=== PATIENT | male | born 1995 | race Two or more races ===

== ENCOUNTER 2021-04-20 18:21 | Emergency (ER) | payer SELFPAY | END 2021-04-20 20:41 | disposition left against medical advice (07) | PROVIDERS: Emergency Provider Emergency Medicine | DX: J45.909 Unspecified asthma, uncomplicated (principal) ==

== ENCOUNTER 2021-04-21 07:31 | Emergency (ER) | payer OTHER, SELFPAY ==
--- NOTE | ~2021-04-21 | XR_ITS ---
EXAMINATION: XR CHEST CLINICAL INFORMATION: Shortness of breath and cough COMPARISON: Previous chest x-ray July 2018 TECHNIQUE: Frontal view of the chest was obtained. FINDINGS: The cardiac and mediastinal contours are normal. The lungs are clear. There is no pleural effusion or pneumothorax. Bony structures are unremarkable. XR/XR chest 1V IMPRESSION: Unremarkable examination.
[2021-04-21 07:41] VITALS: BP 131/72; PULSE 58; RESP 18; TEMP 36.9; O2SAT 98; BMI 31.5
--- NOTE | 2021-04-21 07:45 | ED_ITS ---
HPI - Asthma General Chief Complaint: Asthma Stated Complaint: asthma Time Seen by Provider: 04/21/21 07:43 Source: patient Mode of arrival: ambulatory Limitations: no limitations History of Present Illness HPI Narrative: 26-year-old male past medical history of asthma presents to the emergency department with one-week shortness of breath, and nonproductive cough. He states this is like his typical asthma attack, but it is just not going away. He has been using his albuterol rescue inhaler, and his nebulizer more frequently than usual. He states that yesterday alone he used his nebulizer 3 times, and he used albuterol inhaler like 6 times with little to no relief. He also states he has been feeling stuffy lately and has had a dry cough. He has never required intubation for asthma. He is not a smoker. He denies chest pain, fevers, chills, sore throat, abdominal pain, changes in bowel habits. MD complaint: asthma attack Onset (ago): week(s) (1) Severity: moderate Context: none known Associated symptoms: dry cough Treatments Prior to Arrival: other (Nebulizing treatments and rescue inhaler) Related Data Previous Rx's Medication Instructions Recorded albuterol sulfate 2.5 mg INHALATION Q4-6H PRN #75 ml 04/21/21 albuterol sulfate 90 mcg/actuation 2 puff INHALATION QID PRN #6.7 g 04/21/21 aerosol inhaler prednisone 20 mg tablet 40 mg PO DAILY 5 Days #10 tab 04/21/21 Allergies Allergy/AdvReac Type Severity Reaction Status Date / Time shellfish derived Allergy Anaphylaxis Verified 04/21/21 07:44 Review of Systems Review of Systems: Constitutional : No Weight loss, No Fever, No Chills, No Fatigue, No Malaise ENT/Mouth : No sore throat, + Rhinorrhea Eyes: No Eye Pain, No Swelling, No Redness Cardiovascular : No Chest Pain, + SOB, + Dyspnea on Exertion, No Orthopnea, No Edema, No Palpitations Respiratory : + Cough, No Sputum, No Wheezing Gastrointestinal : No Nausea, No Vomiting, No Diarrhea, No Constipation, No abdominal Pain Genitourinary : No Dysuria, No Urinary Frequency, No Hematuria, Musculoskeletal : No joint pain, No Myalgias, No Joint Swelling Skin : No Skin Lesions, No rash Neuro : No Weakness, No Numbness, No Dizziness, No Headache Psych : No Anxiety/Panic, No Depression All other systems reviewed and are negative [facility] Past Medical History Medical History (Updated 04/21/21 @ 09:35 by Felicita Salinas DO) Asthma Social History Social History Alcohol intake: never Use of substances other than those prescribed or required for medical reasons: No Advance Directives: No Advance Directives Information Provided: No Physical Exam Vital Signs: Vital Signs: Last Vital Signs Temp 98.4 F 04/21/21 07:41 Pulse 76 04/21/21 08:42 Resp 18 04/21/21 07:41 BP 131/72 04/21/21 07:41 Pulse Ox 98 04/21/21 07:41 Body Mass Index 31.5 Appearance: Alert. Oriented X3. No acute distress. Eyes: Pupils equal, round and reactive to light. ENT: Pharynx normal. Neck: Normal inspection. Neck supple. CVS: Normal heart rate and rhythm. Pulses normal. Respiratory: + Mild respiratory distress. + rhonchi and wheezes noted to bilateral lungs overall lung albarado Abdomen: Soft and nontender. Skin: Skin warm and dry. Normal skin color. Normal skin turgor. Extremities: No lower extremity edema. No calf ttp Neuro: Oriented X 3. No motor deficit. No sensory deficit. Course Course Course Narrative: Upon re-evaluation of the patient he is feeling better. He received mild, Solu-Medrol, in an hour long treatment. There are faint expiratory wheezes noted, however significant improvement from when he arrived. He is feeling better, and is not using accessory muscles for breathing. He is not hypoxic, not tachycardic. His laboratory study show no acute infection, COVID negative. MDM - Asthma MDM Narrative Medical decision making narrative: 26-year-old male past medical history of asthma presenting to the emergency department with shortness of breath, nonproductive cough X1 week. He states over the past week he has been using his rescue inhaler, nebulizer more frequently than usual. Last night alone he used his nebulizer 3 times, and has been using his albuterol inhaler about 6 times a day. He also reports rhinorrhea, that is clear in nature. He has not required previous intbation. Not a smoker Plan- EKG, CXR, BMP, liver, mag, CBC. He will also be given an hour long treatment, magnesium and Solu-Medrol IV. Lab Data Result diagrams: 04/21/21 08:03 04/21/21 08:03 Labs: Lab Results 04/21/21 04/21/21 04/21/21 Range/Units 08:03 08:03 08:03 WBC 7.2 (4.8-10.8) X10*3/uL RBC 5.70 (4.60-5.80) X10*6/uL Hgb 16.2 (14.0-18.0) g/dl Hct 47.0 (42-52) % MCV 82.5 (80-98) fL MCH 28.4 (27.0-33.0) pg MCHC 34.5 (31.0-36.0) g/dl RDW 13.0 (11.0-16.0) % Plt Count 325 (160-400) X10*3/uL MPV 9.2 L (9.4-12.4) fL Immature Gran % (Auto) 0.3 (0.0-0.4) % Neut % (Auto) 58.1 (45-73) % Lymph % (Auto) 27.3 (20-40) % Finney % (Auto) 4.6 (2-11) % Eos % (Auto) 8.6 H (0-4) % Baso % (Auto) 1.1 (0-2) % Lymph # (Auto) 2.0 (1.2-4.9) X10*3/uL Finney # (Auto) 0.3 (0.1-1.2) X10*3/uL Eos # (Auto) 0.6 H (0.0-0.4) X10*3/uL Baso # (Auto) 0.1 (0.0-0.2) X10*3/uL Abs Immat Gran (auto) 0.02 (0.00-0.03) X10*3/uL Absolute Neuts (auto) 4.2 (2.0-8.3) X10*3/uL Absolute Nucleated RBC 0.000 (0.0-0.012) X10*3/uL Nucleated RBC % (auto) 0.0 (0.0-0.2) /100WBC Sodium 139 (135-145) mmol/L Potassium 4.0 (3.3-5.1) mmol/L Chloride 106 (96-108) mmol/L Carbon Dioxide 23 (22-29) mmol/L Anion Gap 14 (12-20) BUN 13 (9-16) mg/dL Creatinine 1.06 (0.5-1.4) mg/dL Estim Creat Clear Calc 122.8 Estimated GFR > 60 Random Glucose 145 H (60-115) mg/dL Calcium 9.6 (8.4-10.2) mg/dL Magnesium 2.2 (1.6-2.6) mg/dL Total Bilirubin 1.2 H (0.0-1.0) mg/dL Direct Bilirubin 0.5 (0.0-0.5) mg/dL AST 47 H (5-37) U/L ALT 86 H (0-40) U/L Alkaline Phosphatase 37 L (39-117) U/L Total Protein 7.5 (6.5-8.0) g/dL Albumin 4.8 (3.5-5.0) g/dL COVID-19 (ALELN) Negative (Negative) COVID-19 Clin Com See Note Discharge Plan Discharge Clinical Impression: Breath shortness Asthma with acute exacerbation Qualifiers: Asthma severity: moderate Asthma persistence: persistent Qualified Code(s): J45.41 - Moderate persistent asthma with (acute) exacerbation Patient Disposition: Home, Self-Care Instructions: Asthma (ED), How to Use a Nebulizer (ED) Additional Instructions: Taking medications as prescribed Follow-up with your primary care provider Return to the emergency department with new or worsening symptoms Today in the emergency department you tested negative for COVID-19 Prescriptions: New prednisone 20 mg tablet 40 mg PO DAILY 5 Days Qty: 10 RF: 0 albuterol sulfate 2.5 mg /3 mL (0.083 %) solution for nebulization 2.5 mg inhalation Q4-6H PRN (Reason: bronchospasm) Qty: 75 RF: 0 albuterol sulfate 90 mcg/actuation HFA aerosol inhaler 2 puff inhalation QID PRN (Reason: shortness of breath or wheezing) Qty: 6.7 RF: 0 Stand Alone Forms: Work/School Release
[2021-04-21] MEDS: Magnesium Sulfate/H2O 2 GM/50 ML PIGGYBACK IV (08:06)
[2021-04-21] MEDS: methylPREDNISolone Sod Succ 125 MG/2 ML VIAL IVPUSH (08:06)
[2021-04-21 08:13] LABS: MANUAL DIFF FLAG NO
[2021-04-21 08:18] LABS: Basophils Absolute Auto 0.1 X10*3/uL (0.0-0.2); Basophils Percent Auto 1.1 % (0-2); Eosinophils Absolute Auto 0.6 X10*3/uL (0.0-0.4); Eosinophils Percent Auto 8.6 % (0-4); Hemoglobin 16.2 g/dl (14.0-18.0); Imm Gran Abs Auto 0.02 X10*3/uL (0.00-0.03); Imm Gran Pct Auto 0.3 % (0.0-0.4); Lymphocytes Percent Auto 27.3 % (20-40); Mean Corpuscular HGB Conc 34.5 g/dl (31.0-36.0); Mean Corpuscular Hemoglobin 28.4 pg (27.0-33.0); Mean Corpuscular Volume 82.5 fL (80-98); Mean Platelet Volume 9.2 fL (9.4-12.4); Monocytes Absolute Auto 0.3 X10*3/uL (0.1-1.2); Monocytes Percent Auto 4.6 % (2-11); Neutrophils Absolute Auto 4.2 X10*3/uL (2.0-8.3); Neutrophils Percent Auto 58.1 % (45-73); Platelet Count 325 X10*3/uL (160-400); White Blood Count 7.2 X10*3/uL (4.8-10.8)
--- NOTE | 2021-04-21 08:27 | PC.NURSE ---
0809 resp called for treatment
[2021-04-21 08:36] LABS: Alanine Aminotransferase 86 U/L (0-40); Albumin Level 4.8 g/dL (3.5-5.0); Alkaline Phosphatase 37 U/L (39-117); Anion Gap 14 (12-20); Aspartate Amino Transferase 47 U/L (5-37); Bilirubin Direct 0.5 mg/dL (0.0-0.5); Bilirubin Total 1.2 mg/dL (0.0-1.0); Blood Urea Nitrogen 13 mg/dL (9-16); Calcium 9.6 mg/dL (8.4-10.2); Carbon Dioxide 23 mmol/L (22-29); Chloride 106 mmol/L (96-108); Creatinine Clr Calc Pharmacy 122.8; Estimated Glomerular Filt Rate > 60; Glucose Random 145 mg/dL (60-115); Magnesium 2.2 mg/dL (1.6-2.6); Sodium 139 mmol/L (135-145); Total Protein 7.5 g/dL (6.5-8.0)
[2021-04-21] MEDS: Albuterol Sulfate (0.083%) 2.5 MG/3 ML VIAL.NEB 10 MG INHALE (08:40)
[2021-04-21 08:41] LABS: COVID-19 Test Negative (Negative)
[2021-04-21 08:42] VITALS: PULSE 76; O2SAT 97
== END 2021-04-21 09:43 | disposition home or self-care (01) ==
PROVIDERS: Emergency Provider Emergency Medicine
DX: J45.41 Moderate persistent asthma with (acute) exacerbation (principal); R06.02 Shortness of breath; Z20.822 Contact with and (suspected) exposure to COVID-19; Z79.899 Other long term (current) drug therapy
CPT/HCPCS: 36415; 71045; 80048; 80076; 83735; 85025; 87635; 94640; 94644; 96365; 96366; 96375; 99284; J2930; J3475

== ENCOUNTER 2022-07-27 09:14 | Emergency (ER) | payer MEDICAID, SELFPAY ==
--- NOTE | ~2022-07-27 | XR_ITS ---
EXAMINATION: XR CHEST CLINICAL INFORMATION: Cough COMPARISON: None TECHNIQUE: 2 views of the chest were obtained. FINDINGS: No significant abnormality is noted involving the heart, lungs, mediastinum, bony thorax or soft tissues. XR/XR chest 2V IMPRESSION: Unremarkable chest examination.
[2022-07-27 09:25] VITALS: BP 127/77; PULSE 87; RESP 18; TEMP 36.3; O2SAT 95; BMI 29.2
[2022-07-27 10:23] LABS: Influenza A PCR NEGATIVE (Negative); Influenza B PCR NEGATIVE (Negative); Resp Syncy Virus RNA Qual PCR NEGATIVE (Negative); SARS COV2 PCR INHOUSE NEGATIVE (Negative)
--- NOTE | 2022-07-27 11:44 | ED.URI ---
HPI - URI/Sore Throat General Chief Complaint: Upper Respiratory Symptoms Stated Complaint: Cough/Chest tightness Time Seen by Provider: 07/27/22 11:36 Source: patient Mode of arrival: ambulatory Limitations: no limitations History of Present Illness HPI Narrative: Patient is a 27-year-old male who presents to emergency department for evaluation of cough and nasal congestion. Symptom onset 2-3 weeks ago. Over the past couple days he has felt a flare of his asthma, shortness of breath with wheezing. He has been using his albuterol inhaler nebulizer at home with minimal improvement. Denies ear pain, sore throat, chest pain. Related Data Previous Rx's Medication Instructions Recorded albuterol sulfate 2.5 mg/3 mL 2.5 mg (3 mL) inhalation Q4-6H PRN 04/21/21 (0.083 %) solution for nebulization bronchospasm #75 mL albuterol sulfate 90 mcg/actuation 2 puff inhalation QID PRN 04/21/21 aerosol inhaler shortness of breath or wheezing #6.7 grams prednisone 20 mg tablet 40 mg PO DAILY 5 days #10 tabs 04/21/21 albuterol sulfate 90 mcg/actuation 2 puff inhalation Q4-6H PRN 07/27/22 aerosol inhaler shortness of breath or wheezing #6.7 grams azithromycin 250 mg tablet See Rx Instructions PO .COMPLEX #6 07/27/22 tabs prednisone 20 mg tablet 40 mg PO DAILY 5 days #10 tabs 07/27/22 Allergies Allergy/AdvReac Type Severity Reaction Status Date / Time shellfish derived Allergy Anaphylaxis Verified 04/21/21 07:44 Review of Systems Review of Systems: Constitutional: No fever. No chills. No weakness. No fatigue. ENT/ Mouth: No Ear Pain, positive Nasal Congestion, no sore throat, No Rhinorrhea, No Swallowing Difficulty Skin: No rash or itching. Cardiovascular: No chest pain. No palpitations. Respiratory: No shortness of breath. Positive cough. No sputum production. Positive wheezing Gastrointestinal: No nausea. No vomiting. No diarrhea. No abdominal pain. Genitourinary: No burning micturition. No urinary frequency. Neurologic: No headache. No dizziness. No syncope. No numbness or tingling in the extremities. Musculoskeletal: No muscle pain. No back pain. No joint pain or stiffness. Yes all other systems are reviewed and are negative [facility] Past Medical History Attestation statement: The following information was validated with the patient. Source: old records reviewed Medical History Asthma Social History Social History Alcohol intake: never Physical Exam Vital Signs: Vital Signs: Last Vital Signs Temp 97.4 F 07/27/22 09:25 Pulse 87 07/27/22 09:25 Resp 18 07/27/22 09:25 BP 127/77 07/27/22 09:25 Pulse Ox 95 07/27/22 09:25 O2 Del Method 07/27/22 09:25 BMI result Body Mass Index 29.2 Vital signs have been reviewed as normal and appeared to be correct. Blood pressure normal.? Heart rate normal.? Respiration rate normal. Temperature normal.? Oxygen saturation normal. Appearance: Alert.?Oriented to person, place and time. No acute distress.?Normal affect. Eyes: Pupils equal, round and reactive to light.? ENT: TM normal bilaterally. Pharynx normal.?? Neck: Normal inspection.? Neck supple.??No cervical adenopathy CVS: Heart sounds normal. Normal heart rate and rhythm.? Pulses normal.?? Respiratory: No respiratory distress.? Lung sounds with expiratory wheezing throughout Abdomen: Soft and non-tender. Normoactive bowel sounds. Skin: Skin warm and dry.? Normal skin color.? ? Extremities: No lower extremity edema.? Neuro: Moves all extremities spontaneously. Sensation intact bilaterally. No motor deficits. Ambulates with normal steady gait. Medical Decision Making Medical Decision Making MDM Narrative: Patient is a 27-year-old male with past medical history of asthma, presenting for evaluation of upper respiratory symptoms. COVID-19 testing negative. Influenza testing negative. Chest x-ray revealing no acute cardiopulmonary process At this time history and physical exam not consistent with ACS/PE/pneumonia. Well-appearing, nontoxic, afebrile, no tachycardia or tachypnea/hypoxia. Speaking clear full sentences, ambulatory with steady gait. Symptoms at this time her most consistent with an acute exacerbation of asthma, likely in the setting of recent upper respiratory infection. Prescription for albuterol inhaler, prednisone, and azithromycin were sent to patient's pharmacy. Discussed conservative treatment including rest, hydration, Tylenol/ibuprofen as needed for fever and body aches, saline nasal spray, humidifier. Advised to follow-up with primary care provider as needed, discussed reasons to return back to the emergency department. All questions were answered. Patient discharged home in stable condition. Provided with a return to work note. Differential Diagnosis Differential Diagnoses: The differential diagnosis associated with the presentation includes (As noted above) Lab Data MDM Lab Attestation statement: I reviewed the patient's lab results. Labs: Lab Results 07/27/22 Range/Units 09:37 Influenza Type A (PCR) NEGATIVE (Negative) Influenza Type B (PCR) NEGATIVE (Negative) RSV RNA Qual (PCR) NEGATIVE (Negative) SARS-CoV-2 RNA (RT-PCR) NEGATIVE (Negative) Independent Interpretation I performed an independent interpretation of an: Plain X-Ray Interpretation: I personally interpreted patient's chest x-ray and agree with radiologist impression, no consolidations or infiltrates, does not appear consistent with pneumonia. Radiology Impression Discussion of test interpretation with radiology: I have reviewed the radiologist's reading. Radiologist Impression: XR/XR chest 2V IMPRESSION: Unremarkable chest examination. Prescription Management I considered prescription management with: Antibiotic (Prescription for azithromycin sent to patient's pharmacy in addition to prednisone a prescription for albuterol inhaler.) Chronic Conditions Patient?s care impacted by: Other (Asthma) Discharge Plan Discharge Clinical Impression: Asthma exacerbation Patient Disposition: Home, Self-Care Instructions: Asthma (ED) Additional Instructions: As discussed, a prescription for azithromycin and prednisone were sent to your pharmacy in addition to a refill of your albuterol inhaler Please follow-up with your primary care provider for persistent symptoms. Return to emergency department with any new or worsening symptoms or concerns. Prescriptions: New prednisone 20 mg tablet 40 mg PO DAILY 5 Days Qty: 10 0RF azithromycin 250 mg tablet See Rx Instructions .ROUTE .COMPLEX Qty: 6 0RF Rx Instructions: For 250 mg dose pack: take 500 mg today (day 1), then 250 mg for 4 days (days 2-5) albuterol sulfate 90 mcg/actuation HFA aerosol inhaler 2 puff inhalation Q4-6H PRN (Reason: shortness of breath or wheezing) Qty: 6.7 0RF No Action prednisone 20 mg tablet 40 mg PO DAILY 5 Days Qty: 10 0RF albuterol sulfate 2.5 mg /3 mL (0.083 %) solution for nebulization 2.5 mg inhalation Q4-6H PRN (Reason: bronchospasm) Qty: 75 0RF albuterol sulfate 90 mcg/actuation HFA aerosol inhaler 2 puff inhalation QID PRN (Reason: shortness of breath or wheezing) Qty: 6.7 0RF Referrals: Tano Wolf MD [Primary Care Provider] - Stand Alone Forms: Work/School Release
[2022-07-27 12:10] VITALS: BP 145/60; PULSE 93; RESP 16; O2SAT 95
== END 2022-07-27 13:27 | disposition home or self-care (01) ==
PROVIDERS: Emergency Provider Emergency Medicine; PCP Internal Medicine
DX: J45.901 Unspecified asthma with (acute) exacerbation (principal); Z20.828 Contact with and (suspected) exposure to other viral communicable diseases
CPT/HCPCS: 0241U; 71046; 99283

== ENCOUNTER 2023-10-07 18:25 | Emergency (ER) | payer OTHER, SELFPAY | END 2023-10-07 19:49 | disposition left against medical advice (07) | PROVIDERS: Emergency Provider Emergency Medicine; PCP Internal Medicine | DX: Z53.21 Procedure and treatment not carried out due to patient leaving prior to being seen by health care provider (principal); J10.1 Influenza due to other identified influenza virus with other respiratory manifestations; M54.9 Dorsalgia, unspecified ==

== ENCOUNTER 2023-11-16 09:44 | Emergency (ER) | payer OTHER, SELFPAY ==
--- NOTE | ~2023-11-16 | XR_ITS ---
EXAMINATION: XR CHEST CLINICAL INFORMATION: Dyspnea COMPARISON: Previous chest x-ray most recent July 2022 TECHNIQUE: Frontal view of the chest was obtained. FINDINGS: No significant abnormality is noted involving the heart, lungs, mediastinum, bony thorax or soft tissues. XR/XR chest 1V IMPRESSION: Unremarkable examination.
[2023-11-16 09:52] VITALS: BP 137/74; PULSE 87; RESP 24; TEMP 36.4; O2SAT 98; BMI 30.6
[2023-11-16] MEDS: methylPREDNISolone Sod Succ 125 MG/2 ML VIAL IVPUSH (10:15)
[2023-11-16] MEDS: 0.9 % Sodium Chloride 1,000 ML 999 ML IV (10:15)
[2023-11-16] MEDS: Magnesium Sulfate/H2O 2 GM/50 ML PIGGYBACK IV (10:15)
--- NOTE | 2023-11-16 10:18 | ED.ASTHMA ---
HPI - Asthma General Chief Complaint: Dyspnea Stated Complaint: Asthma Attack Time Seen by Provider: 11/16/23 10:04 Source: patient Mode of arrival: ambulatory Limitations: no limitations History of Present Illness HPI Narrative: 28 yo male with PMH of asthma here with c/o seasonal allergies and asthma exacerbation no recent prednisone use no fevers ran out of his nebulizer liquids. No sputum production. He has hx of same in past. Has never been intubated. MD complaint: asthma attack , shortness of breath and wheezing Onset (ago): day(s) (this AM) Severity: moderate Context: allergen exposure Associated symptoms: dry cough Asthma History: childhood onset Related Data Previous Rx's ?Medication ?Instructions ?Recorded albuterol sulfate 2.5 mg/3 mL 2.5 mg (3 mL) inhalation Q4-6H PRN 04/21/21 (0.083 %) solution for nebulization bronchospasm #75 mL albuterol sulfate 90 mcg/actuation 2 puff inhalation QID PRN 04/21/21 aerosol inhaler shortness of breath or wheezing #6.7 grams prednisone 20 mg tablet 40 mg (2 x 20 mg) PO DAILY 5 days 04/21/21 #10 tabs albuterol sulfate 90 mcg/actuation 2 puff inhalation Q4-6H PRN 07/27/22 aerosol inhaler shortness of breath or wheezing #6.7 grams azithromycin 250 mg tablet See Rx Instructions PO .COMPLEX #6 07/27/22 tabs prednisone 20 mg tablet 40 mg (2 x 20 mg) PO DAILY 5 days 07/27/22 #10 tabs albuterol sulfate 2.5 mg/3 mL 2.5 mg (3 mL) inhalation Q4-6H PRN 11/16/23 (0.083 %) solution for nebulization bronchospasm #75 mL prednisone 20 mg tablet 40 mg (2 x 20 mg) PO DAILY 5 days 11/16/23 #10 tabs Allergies Allergy/AdvReac Type Severity Reaction Status Date / Time shellfish derived Allergy Anaphylaxis Verified 11/16/23 09:54 Review of Systems Review of Systems: Constitutional : No Fever, No Chills ENT/Mouth : No Hoarseness, No sore throat, No Rhinorrhea Eyes: No Redness, No Discharge, No Vision Changes Cardiovascular : No Chest Pain, positive SOB, positive Dyspnea on Exertion, No Edema Respiratory : positive Cough, No Sputum, positive Wheezing, Gastrointestinal : No Nausea, No Vomiting, No Diarrhea, No abdominal Pain Genitourinary : No Dysuria, No Hematuria Musculoskeletal : No joint pain, No Myalgias Skin : No rash Neuro : No Weakness, No Numbness, No Headache Psych : No anxiety, depression Heme/Lymph: No Bruising, No Bleeding Endocrine : No Polyuria, No Polydipsia All other systems reviewed and are negative [facility] BY [facility] Past Medical History Attestation statement: The following information was validated with the patient. Source: old records reviewed Medical History Asthma Social History Social History (Updated 11/16/23 @ 10:21 by Amy Salinas DO) Alcohol intake: never Patient Tobacco Use Status: Never used Tobacco Substance Use Type: Marijuana Advance Directives: No Advance Directives Information Provided: Yes Do you have a plan to hurt others: No Plan Physical Exam Vital Signs: Vital Signs: Last Vital Signs Temp 97.6 F 11/16/23 09:52 Pulse 76 11/16/23 10:36 Resp 27 H 11/16/23 10:36 BP 137/74 11/16/23 09:52 Pulse Ox 98 11/16/23 09:52 O2 Del Method Room Air 11/16/23 09:52 BMI result Body Mass Index 30.6 Appearance: Alert. Oriented X3. Mild acute distress. Eyes: Pupils equal, round and reactive to light. ENT: Pharynx normal. Neck: Normal inspection. Neck supple. CVS: Normal heart rate and rhythm. Pulses normal. Respiratory: Mild respiratory distress tachypnea and short phrases. Breath sounds diffuse exp wheezes throughout Abdomen: Soft and nontender. Skin: Skin warm and dry. Normal skin color. Normal skin turgor. Extremities: No lower extremity edema. No calf ttp Neuro: Oriented X 3. No motor deficit. No sensory deficit. Medications Administered Discontinued Medications Generic Name Dose Route Start Last Admin Trade Name Freq PRN Reason Stop Dose Admin Albuterol Sulfate 5 mg/ 0 mg 11/16/23 10:28 11/16/23 10:36 Albuterol/Ipratropium 3 ml INHALE 11/16/23 10:29 7.5 each ONCE ONE Administration Magnesium Sulfate 2 gm in 50 mls @ 150 mls/hr 11/16/23 10:04 11/16/23 11:02 Magnesium Sulfate/H2o IV 11/16/23 10:23 Infused ONCE ONE Infusion Sodium Chloride 1,000 mls @ 999 mls/hr 11/16/23 10:15 11/16/23 10:15 Ns IV 11/16/23 11:15 999 mls/hr .Q1H1M ANMOL Administration Methylprednisolone Sodium Succinate 125 mg 11/16/23 10:04 11/16/23 10:15 Methylprednisolone Sod Succ 125 Mg/2 Ml Vial IVPUSH 11/16/23 10:05 125 mg ONCE ONE Administration Medical Decision Making Medical Decision Making MDM Narrative: 28 yo male with PMH of asthma here with c/o seasonal allergies and now having wheezing and asthma exacerbation ran out of albuterol liquid at this time will need bronch protocol, labs, viral panel, CXR, IV steroids and IV magnesium. No prior intubations. Differential Diagnosis Differential Diagnoses: The differential diagnosis associated with the presentation includes asthma, URI Admission/Observation Consideration of admission/observation: Escalation of care including admission/observation considered no hypoxia clear feels much better stable for DC Lab Data [facility] Lab Attestation statement: I reviewed the patient's lab results. 11/16/23 10:17 11/16/23 10:17 Labs: Lab Results 11/16/23 Range/Units 10:17 WBC 5.9 (4.8-10.8) X10*3/uL RBC 5.76 (4.60-5.80) X10*6/uL Hgb 16.4 (14.0-18.0) g/dl Hct 46.5 (42.0-52.0) % MCV 80.7 (80.0-98.0) fL MCH 28.5 (27.0-33.0) pg MCHC 35.3 (31.0-36.0) g/dl RDW 13.1 (11.0-16.0) % Plt Count 332 (160-400) X10*3/uL MPV 9.0 L (9.4-12.4) fL Immature Gran % (Auto) 0.2 (0.0-0.4) % Neut % (Auto) 56.8 (45-73) % Lymph % (Auto) 29.3 (20-40) % [place]ancock % (Auto) 7.6 (2-11) % Eos % (Auto) 5.1 H (0-4) % Baso % (Auto) 1.0 (0-2) % Lymph # (Auto) 1.7 (1.2-4.9) X10*3/uL [place] # (Auto) 0.5 (0.1-1.2) X10*3/uL Eos # (Auto) 0.3 (0.0-0.4) X10*3/uL Baso # (Auto) 0.1 (0.0-0.2) X10*3/uL Abs Immat Gran (auto) 0.01 (0.00-0.03) X10*3/uL Absolute Neuts (auto) 3.4 (2.0-8.3) x10*3/uL Absolute Nucleated RBC 0.000 (0.0-0.012) X10*3/uL Nucleated RBC % (auto) 0.0 (0.0-0.2) /100WBC Sodium 138 (135-145) mmol/L Potassium 4.0 (3.3-5.1) mmol/L Chloride 108 (96-108) mmol/L Carbon Dioxide 22 (22-29) mmol/L Anion Gap 12 (12-20) BUN 15 (9-16) mg/dL Creatinine 0.93 (0.5-1.4) mg/dL Estim Creat Clear Calc 135.6 Estimated GFR > 60 Random Glucose 98 (60-115) mg/dL Calcium 9.6 (8.4-10.2) mg/dL Influenza Type A (PCR) NEGATIVE (Negative) Influenza Type B (PCR) NEGATIVE (Negative) RSV RNA Qual (PCR) NEGATIVE (Negative) SARS-CoV-2 RNA (RT-PCR) NEGATIVE (Negative) Independent Interpretation I performed an independent interpretation of an: Plain X-Ray (no pneumonia) Radiology Impression Discussion of test interpretation with radiology: I have reviewed the radiologist's reading. External Record Review External record reviewed: Inpatient record Prescription Management I considered prescription management with: Other Critical Care Time Critical Care Time Critical Care Time: Yes Total Critical Care Time: 45 Attestation: hour long neb, IV magnesium, IV steroids, repeat assessments I attest to this time spent taking care of the patient Discharge Plan Discharge Clinical Impression: Asthma with exacerbation Patient Disposition: Home, Self-Care Instructions: Asthma (ED) Additional Instructions: return for worsening symptoms - fevers, inability to breathe or any other concerns Prescriptions: New albuterol sulfate 2.5 mg /3 mL (0.083 %) solution for nebulization 2.5 mg inhalation Q4-6H PRN (Reason: bronchospasm) Qty: 75 0RF prednisone 20 mg tablet 40 mg PO DAILY 5 Days Qty: 10 0RF No Action prednisone 20 mg tablet 40 mg PO DAILY 5 Days Qty: 10 0RF azithromycin 250 mg tablet See Rx Instructions .ROUTE .COMPLEX Qty: 6 0RF Rx Instructions: For 250 mg dose pack: take 500 mg today (day 1), then 250 mg for 4 days (days 2-5) albuterol sulfate 90 mcg/actuation HFA aerosol inhaler 2 puff inhalation Q4-6H PRN (Reason: shortness of breath or wheezing) Qty: 6.7 0RF prednisone 20 mg tablet 40 mg PO DAILY 5 Days Qty: 10 0RF albuterol sulfate 2.5 mg /3 mL (0.083 %) solution for nebulization 2.5 mg inhalation Q4-6H PRN (Reason: bronchospasm) Qty: 75 0RF albuterol sulfate 90 mcg/actuation HFA aerosol inhaler 2 puff inhalation QID PRN (Reason: shortness of breath or wheezing) Qty: 6.7 0RF Stand Alone Forms: Work/School Release Print Language: Iranian
[2023-11-16 10:21] LABS: MANUAL DIFF FLAG NO
[2023-11-16 10:24] LABS: Basophils Absolute Auto 0.1 X10*3/uL (0.0-0.2); Eosinophils Absolute Auto 0.3 X10*3/uL (0.0-0.4); Eosinophils Percent Auto 5.1 % (0-4); Hematocrit 46.5 % (42.0-52.0); Hemoglobin 16.4 g/dl (14.0-18.0); Imm Gran Abs Auto 0.01 X10*3/uL (0.00-0.03); Imm Gran Pct Auto 0.2 % (0.0-0.4); Lymphocytes Absolute Auto 1.7 X10*3/uL (1.2-4.9); Lymphocytes Percent Auto 29.3 % (20-40); Mean Corpuscular HGB Conc 35.3 g/dl (31.0-36.0); Mean Corpuscular Hemoglobin 28.5 pg (27.0-33.0); Mean Corpuscular Volume 80.7 fL (80.0-98.0); Monocytes Absolute Auto 0.5 X10*3/uL (0.1-1.2); Monocytes Percent Auto 7.6 % (2-11); Neutrophils Absolute Auto 3.4 x10*3/uL (2.0-8.3); Neutrophils Percent Auto 56.8 % (45-73); Platelet Count 332 X10*3/uL (160-400); Red Blood Count 5.76 X10*6/uL (4.60-5.80); Red Cell Distribution Width 13.1 % (11.0-16.0); White Blood Count 5.9 X10*3/uL (4.8-10.8)
[2023-11-16 10:36] VITALS: PULSE 76; RESP 27; O2SAT 99
[2023-11-16 10:36] LABS: Anion Gap 12 (12-20); Blood Urea Nitrogen 15 mg/dL (9-16); Calcium 9.6 mg/dL (8.4-10.2); Carbon Dioxide 22 mmol/L (22-29); Chloride 108 mmol/L (96-108); Creatinine Clr Calc Pharmacy 135.6; Estimated Glomerular Filt Rate > 60; Glucose Random 98 mg/dL (60-115); Sodium 138 mmol/L (135-145)
[2023-11-16] MEDS: Albuterol Sulfate 5 MG, Albuterol/Iprat 2.5/0.5MG 3 ML 3 ML INHALE (10:36)
[2023-11-16 11:01] LABS: Influenza A PCR NEGATIVE (Negative); Influenza B PCR NEGATIVE (Negative); Resp Syncy Virus RNA Qual PCR NEGATIVE (Negative); SARS COV2 PCR INHOUSE NEGATIVE (Negative)
[2023-11-16 12:04] VITALS: BP 130/75; PULSE 98; RESP 16; TEMP 36.4; O2SAT 99
== END 2023-11-16 12:05 | disposition home or self-care (01) ==
PROVIDERS: Emergency Provider Emergency Medicine; PCP Internal Medicine
DX: J45.901 Unspecified asthma with (acute) exacerbation (principal)
CPT/HCPCS: 0241U; 71045; 80048; 85025; 94640; 96361; 96374; 96375; 99283; 99284; J2919; J3475

== ENCOUNTER 2024-06-29 11:36 | Outpatient (AMB) | payer OTHER, SELFPAY ==
--- NOTE | 2024-06-29 11:42 | AM.OFFWIN_ITS ---
Intake Vital Signs 06/29/24 11:46 06/29/24 12:14 Height 5 ft 10 in Weight 215 lb BMI 30.8 BP 125/66 Blood Pressure Location Rt brachial Position Sitting Respiration 14 Pulse 60 85 Pulse Source Pulse Oximeter Pulse Oximeter Temp 97.7 F Temp Source Skin Pulse Oximetry (%) 94 98 Oxygen Delivery Method Room Air Room Air Intake Visit Reasons: Shortness of breath Intake Note: Patient complaining of chest tightness, bad allergy and sob x5 days. Patient ran out of albuterol a week ago. Patient Tobacco Use Status: Never used Tobacco Allergies shellfish derived Allergy (Verified 06/29/24 11:52) Anaphylaxis Medication List - Last Reconciled 06/29/24 by Lupe Rea, [facility]- albuterol sulfate 90 mcg/actuation 2 puffs inhalation QID PRN albuterol sulfate 2.5 mg (3 mL) inhalation Q4-6H PRN budesonide-formoterol 160-4.5 mcg/actuation (Symbicort) 2 puffs inhalation Q12H cetirizine (Zyrtec) 10 mg PO DAILY PRN Do you need a note to return to daycare/school/sports/work: No HPI HPI Comments History of Present Illness Details History of Present Illness The patient is a 29-year-old male presenting with shortness of breath and allergy-related symptoms. The patient has a history of asthma, which he reports has been managed without consistent medical supervision due to a prior lack of insurance. He indicates that his asthma is exacerbated when he does not have his albuterol. While using Symbicort and albuterol, he notes that albuterol provides only intermittent relief. He has recently received both the flu and COVID vaccines, which he feels is important given his asthma. In addition to asthma, the patient suffers from severe allergic rhinitis, causing sinus swelling, particularly noted as swelling in his nasal passages and pressure in his ears. The allergies contribute to his asthma exacerbations. He is currently using cetirizine and a nasal spray called Astepro, which he finds somewhat effective as opposed to Flonase. The patient has taken Montelukast (Singulair) in the past with mixed results and has temporarily been off some of his medications due to lack of access. 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 Physical Exam Awake alert NAD Sclera and conjunctiva clear bilat Nares patent, turbinates pale and edematous, no sinus tenderness with palpation bilat TM intact with congestion bilat, R>L MMM, pharynx WNL RRR LS CTAB Plan DuoNeb updraft provided during the office visit. I have sent in prescription refills on his Symbicort, albuterol nebulizer as well as his HFA. I have sent in a new prescription for Singulair 10 mg to be taken at bedtime, nasal ip ratropium to help with his nasal congestion. He should continue to take his cwgu-bro-lafzpaa Zyrtec. I would recommend a close follow up with his new primary care provider in about 2 weeks. Asked him to stop with the front office to have the desk staff set this up for him. Educated on reasons to return to the office Patient was informed and verbally consented to the use of an ambient scribe for clinic note documentation during this visit. This note is constructed using voice recognition software. While every effort has been made to ensure accuracy in technician semiconductor development, still errors may have been included Sometimes, these errors may affect the content or meaning of the given sentence . Total time spent caring for the patient today was 30 minutes. This includes time spent before the visit reviewing the chart, time spent during the visit, and time spent after the visit on documentation [facility] Medical History Asthma Social History (Updated 11/16/23 @ 10:21 by Amy Salinas DO) Alcohol intake: never Patient Tobacco Use Status: Never used Tobacco Substance Use Type: Marijuana Physical Exam Vital Signs: Last Vital Signs Temp 97.7 F 06/29/24 11:46 Pulse 85 06/29/24 12:14 Resp 14 06/29/24 11:46 BP 125/66 06/29/24 11:46 Pulse Ox 98 06/29/24 12:14 Oxygen Delivery Method Room Air 06/29/24 12:14 BMI result Body Mass Index 30.8 Office Procedures Nebulizer Treatment Nebulizer Treatment 21086-Mdkecnqcm/MDI RX initial, or Nebulizer Subsequent Treatment Office Meds ipratropium 0.5 mg-albuterol 3 mg (2.5 mg base)/3 mL nebulization soln Performing Provider: NATASHA Ryan [place] [facility] Administered by: NATASHA Ryan on 06/29/24 12:04 Dose Route Admin Location Dispensed Lot Number Expiration Date NDC Senior Technical Business Analyst 3 mL inhalation 3 mL [id number] 12/22/25 [id number] [employer] Assessment & Plan Assessment & Plan (1) Moderate persistent asthma: Code(s): J45.40 - Moderate persistent asthma, uncomplicated Qualifiers: Asthma complication type: with status asthmaticus Qualified Code(s): J45.42 - Moderate persistent asthma with status asthmaticus (2) Environmental allergies: Code(s): Z91.09 - Other allergy status, other than to drugs and biological substances Plan . Orders: Orders AMB Nebulizer Treatment Today J45.40 - Moderate persistent asthma, uncomplica arielle Medications: New montelukast (Singulair) 10 mg PO BEDTIME 90 tabs 0RF budesonide-formoterol 160-4.5 mcg/actuation (Symbicort) 2 puffs inhalation Q12H 10.2 grams 6RF ipratropium bromide administer into each nostril 2 sprays intranasal BID-TID PRN 30 mL 3RF allergy symptoms Refilled albuterol sulfate 90 mcg/actuation 2 puffs inhalation QID PRN 6.7 grams 4RF shortness of breath or wheezing albuterol sulfate 2.5 mg (3 mL) inhalation Q4-6H PRN 75 mL 0RF bronchospasm Discontinued prednisone Discontinued Reason: Patient Completed Course 40 mg (2 x 20 mg) PO DAILY 5 days 10 tabs 0RF albuterol sulfate Discontinued Reason: Patient no longer taking 2.5 mg (3 mL) inhalation Q4-6H PRN 75 mL 0RF bronchospasm azithromycin Discontinued Reason: Patient Completed Course For 250 mg dose pack: take 500 mg today (day 1), then 250 mg for 4 days (days 2-5) 6 tabs 0RF albuterol sulfate 90 mcg/actuation Discontinued Reason: Duplicate 2 puffs inhalation Q4-6H PRN 6.7 grams 0RF shortness of breath or wheezing prednisone Discontinued Reason: Patient Completed Course 40 mg (2 x 20 mg) PO DAILY 5 days 10 tabs 0RF prednisone Discontinued Reason: Patient no longer taking 40 mg (2 x 20 mg) PO DAILY 5 days 10 tabs 0RF Coding Level of Care Code Est Pt Level 4 (77040) Diagnoses Moderate persistent asthma with status asthmaticus J45.42 Asthma complication type: with status asthmaticus Environmental allergies Z91.09 CPT Codes Nebulizer Treatment - Nebulizer Treatment, initial or subsequent: 14827- Nebulizer/MDI RX initial, or Nebulizer Subsequent Treatment ([id number])
[2024-06-29 11:46] VITALS: BP 125/66; PULSE 60; RESP 14; TEMP 36.5; O2SAT 94; BMI 30.8
[2024-06-29 12:14] VITALS: PULSE 85; O2SAT 98
== END 2024-06-29 12:17 | disposition home or self-care (01) ==
PROVIDERS: PCP Internal Medicine; Visit Provider Nurse Practitioner Family
DX: J45.42 Moderate persistent asthma with status asthmaticus (principal); Z91.09 Other allergy status, other than to drugs and biological substances; J45.40 Moderate persistent asthma, uncomplicated

== ENCOUNTER → 2024-06-29 11:36 | Outpatient (BNVA) | payer OTHER, SELFPAY | PROVIDERS: PCP Internal Medicine | DX: J45.42 Moderate persistent asthma with status asthmaticus (principal); Z91.09 Other allergy status, other than to drugs and biological substances | CPT/HCPCS: 94640; 99212 ==

== ENCOUNTER 2024-07-16 13:03 | Outpatient (AMB) | payer OTHER, SELFPAY ==
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
[2024-07-16 13:20] VITALS: BP 121/56; PULSE 62; RESP 16; TEMP 36.9; O2SAT 97; BMI 30.5
[2024-07-16 14:05] VITALS: BP 120/70
== END 2024-07-16 14:16 | disposition home or self-care (01) ==
PROVIDERS: PCP Nurse Practitioner Family; Visit Provider Nurse Practitioner Family
DX: Z00.00 Encounter for general adult medical examination without abnormal findings (principal); J45.42 Moderate persistent asthma with status asthmaticus; F41.9 Anxiety disorder, unspecified; F32.A Depression, unspecified; Z91.09 Other allergy status, other than to drugs and biological substances; R06.83 Snoring

== ENCOUNTER → 2024-07-16 13:03 | Outpatient (BNVA) | payer OTHER, SELFPAY | PROVIDERS: PCP Nurse Practitioner Family; Visit Provider Nurse Practitioner Family | DX: Z00.00 Encounter for general adult medical examination without abnormal findings (principal); J45.42 Moderate persistent asthma with status asthmaticus; F41.9 Anxiety disorder, unspecified; F32.A Depression, unspecified; R06.83 Snoring; Z91.09 Other allergy status, other than to drugs and biological substances | CPT/HCPCS: 96127; 96160; 99202; 99385 ==

== ENCOUNTER 2024-07-19 09:54 | Outpatient (AMB) | payer OTHER, SELFPAY ==
--- NOTE | 2024-07-19 10:00 | A.OFFVIS_ITS ---
Vital Signs 07/19/24 10:02 Height 5 ft 10 in Weight 219 lb BMI 31.4 BP 130/84 Blood Pressure Location Rt brachial Position Sitting Intake Visit Reasons: INP-Snoring Intake Note: Patient presents for snoring. 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 He continues to have excessive daytime fatigue and loud snoring, per partner. 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 He wakes up at 6am daily and has no issues getting up in the morning, doesn't drink coffee or use any stimulants. He takes a nap daily around 2pm, feels he has low energy and feels refreshed after his 1-2 hours of daily nap. He does not use electronic devices in bed, such as tablets or phone, however sometimes leaves the TV on in his room. He has a red light in his bedroom to help him wind down. He exercises 3-5 times a week doing high intensity target work outs. Drinks 1-2 cans of diet soda per day, has a good diet otherwise and wants to increase his water intake. 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 Denies acid reflux, does experience occasional stomach upset and is well controlled with diet. He does not smoke, or drink alcohol, sometimes will socially engage in MJ use, however denies edibles. 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 Current occupational exposures/hazards: No Cognitive needs: No Hearing needs: No Vision needs: Yes Review of Systems Const All systems reviewed & are unremarkable except as noted in HPI and below ENT Reports Normal hearing present Neuro Reports Normal hearing present Physical Exam Vital Signs: Last Vital Signs BP 130/84 07/19/24 10:02 BMI result Body Mass Index 31.4 Const General: cooperative, comfortable and no acute distress Nutritional Appearance: average body habitus Orientation/consciousness: patient oriented x3 HEENT Throat: Yes other ([place] score of 2) Eyes Pupils: Equal, round and reactive pupils present Resp Effort & Inspection: normal respiratory effort and able to speak in complete sentences Neuro General: patient oriented x3 and moves all extremities Cranial nerves: Yes CN's II-XII intact bilaterally, Yes Facial sensation intact/muscles of mastication intact, Yes Equal, round and reactive pupils present, Yes Normal accommodation reflex present, Yes Bilaterally intact EOM present, Yes Nystagmus not present, Yes Normal facial strength present, Yes Midline tongue present, Yes Symmetric palate elevation present, Yes Normal hearing present, Yes Ability to bilaterally rotate head present and Yes Ability to bilaterally elevate shoulders present Motor exam (neuro): 5/5 motor strength present throughout Deep tendon reflexes (DTR's): Right triceps reflex intensity grade: 2+, Left triceps reflex intensity grade: 2+, Rt Biceps (C5, C6): 2+, Left biceps reflex intensity grade: 2+, Right brachioradialis reflex intensity grade: 2+, Left brachioradialis reflex intensity grade: 2+, Right patellar reflex intensity grade: 2+ and Left patellar reflex intensity grade: 2+ Coordination: [id number] test normal Psych Appearance: grossly normal Mental Status: mental status grossly normal Speech and movement: Normal speech and movement present Affect: normal affect Attitude: cooperative Thought process: Normal thought process present Thought content: Normal thought content present Insight: Good insight present (Psych) Judgement: Good judgement present (Psych) Assessment & Plan Assessment & Plan (1) Snoring: Code(s): R06.83 - Snoring Category: Medical (2) Excessive daytime sleepiness: Code(s): G47.19 - Other hypersomnia Category: Medical Plan Stressed good sleep hygiene, no devices in bed, no TV or bright lights, dark, cool environment. Referred for home sleep study, will fern picker equipmnet in [place]. Discussed f/u of all labs which are pending by PCP, especially need thyroid information as he tends to feel over heated . Emphasized exercise, water consumption 60% of body weight, as he is in the gym 3-5x per week doing HIT. Will f/u in 3 months after his sleep study is completed for therapy per results. Orders: Orders RT home sleep study Today G47.19 - Other hypersomnia, R06.83 - Snoring Coding Level of Care Code New Pt Level 3 (49439) Diagnoses Snoring R06.83 Excessive daytime sleepiness G47.19 Time Spent (min) 30 Comment New Evaluation Sleep Questionnaire Difficulty falling asleep: No Difficulty staying asleep?: No Number of arousals: 1x- 2 bathroom Snoring: Yes (Loudly) Witnessed apneas: Yes (partner shakes to wake him) Gasping arousals: Yes Nocturia: No GERD: No Vivid dreams: No Acting out dreams: Yes (twitch / and toss) Abnormal behavior in sleep: No Abnormal movements in sleep: Yes Morning headaches: Yes (few - grinds ) Excessive daytime sleepiness: Yes (lacks energy) Daytime naps: Yes (1-2 hours at 2PM) Restless legs: No Hallucinations: No Sleep paralysis: No Drop attacks: No Sleep Study: No CPAP: No
[2024-07-19 10:02] VITALS: BP 130/84; BMI 31.4
== END 2024-07-19 10:31 | disposition home or self-care (01) ==
PROVIDERS: PCP Nurse Practitioner Family; Visit Provider Physician Assistant Medical
DX: R06.83 Snoring (principal); G47.19 Other hypersomnia
CPT/HCPCS: 99203

== ENCOUNTER → 2024-07-19 09:54 | Outpatient (BNVA) | payer OTHER, SELFPAY | PROVIDERS: PCP Nurse Practitioner Family; Visit Provider Physician Assistant Medical | DX: G47.19 Other hypersomnia (principal); R06.83 Snoring | CPT/HCPCS: 99202 ==

== ENCOUNTER 2024-07-30 09:54 | Outpatient (REF) | payer OTHER, SELFPAY ==
[2024-07-30 11:24] LABS: Appearance Urine Clear; Color Urine Yellow; Glucose Urine UA Negative (Negative); Leukocyte Esterase Urine Negative (Negative); Nitrite Urine Negative (Negative); PH 5.5 (5.0-9.0); Specific Gravity - Urine >= 1.030 (1.005-1.025); Urine Blood Negative (Negative); Urine Ketones Negative (Negative); Urine Protein Trace mg/dL (Neg-Trace)
[2024-07-30 11:42] LABS: MANUAL DIFF FLAG NO
[2024-07-30 11:45] LABS: Basophils Absolute Auto 0.1 X10*3/uL (0.0-0.2); Basophils Percent Auto 1.2 % (0-2); Eosinophils Absolute Auto 0.3 X10*3/uL (0.0-0.4); Eosinophils Percent Auto 4.7 % (0-4); Hematocrit 47.8 % (42.0-52.0); Hemoglobin 16.6 g/dl (14.0-18.0); Imm Gran Abs Auto 0.01 X10*3/uL (0.00-0.03); Imm Gran Pct Auto 0.2 % (0.0-0.4); Lymphocytes Absolute Auto 1.5 X10*3/uL (1.2-4.9); Lymphocytes Percent Auto 24.2 % (20-40); Mean Corpuscular HGB Conc 34.7 g/dl (31.0-36.0); Mean Corpuscular Hemoglobin 28.6 pg (27.0-33.0); Mean Corpuscular Volume 82.3 fL (80.0-98.0); Mean Platelet Volume 9.9 fL (9.4-12.4); Monocytes Absolute Auto 0.4 X10*3/uL (0.1-1.2); Monocytes Percent Auto 7.4 % (2-11); Neutrophils Absolute Auto 3.7 x10*3/uL (2.0-8.3); Neutrophils Percent Auto 62.3 % (45-73); Platelet Count 318 X10*3/uL (160-400); Red Blood Count 5.81 X10*6/uL (4.60-5.80); Red Cell Distribution Width 12.9 % (11.0-16.0)
[2024-07-30 12:18] LABS: Alanine Aminotransferase 43 U/L (0-40); Albumin Level 4.8 g/dL (3.5-5.0); Alkaline Phosphatase 35 U/L (39-117); Anion Gap 11 (12-20); Aspartate Amino Transferase 30 U/L (5-37); Blood Urea Nitrogen 15 mg/dL (9-16); Carbon Dioxide 23 mmol/L (22-29); Chloride 110 mmol/L (96-108); Cholesterol 141 mg/dL (<200); Estimated Glomerular Filt Rate > 60; Glucose Fasting 97 mg/dL (60-99); HDL Cholesterol 58 mg/dL (>40); LDL Cholesterol Calculated 75 mg/dL (<100); Potassium 3.8 mmol/L (3.3-5.1); Sodium 140 mmol/L (135-145); Total Protein 7.8 g/dL (6.5-8.0); Triglycerides 43 mg/dL (<150)
[2024-07-30 12:26] LABS: Bilirubin Total 0.9 mg/dL (0.0-1.0)
[2024-07-30 12:36] LABS: TSH reflex Free T4 1.46 uIU/mL (0.32-4.0)
== END 2024-07-30 09:55 | disposition home or self-care (01) ==
LOC: HO.WFDLDS 09:54
PROVIDERS: Visit Provider Nurse Practitioner Family
DX: Z00.00 Encounter for general adult medical examination without abnormal findings (principal)
CPT/HCPCS: 36415; 80053; 80061; 81003; 84443; 85025

== ENCOUNTER 2024-08-02 11:26 | Outpatient (AMB) | payer OTHER, SELFPAY ==
--- NOTE | 2024-08-02 11:22 | A.OFFPC_ITS ---
Intake Visit Reasons: 2 wks labs review Intake Note: patient here for follow up on labs Laborer Aquatic Life Required: No Allergies shellfish derived Allergy (Verified 08/02/24 11:22) Anaphylaxis Tobacco use date assessed: 07/16/24 Dental Screening Dental Screen Date: 08/02/24 Did you have a dental visit in the last 12 months?: No Did you have a dental problem in the last 6 months where you did not have access to dental care?: No Was dental information given to patient?: No HPI HPI Comments History of Present Illness Details 29-year-old male presents for telehealth visit for review of recent lab results. He admits to taking his medications as prescribed without adverse reactions. He offers no complaints and denies acute symptoms at this time. 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 Current occupational exposures/hazards: No Cognitive needs: No Hearing needs: No Vision needs: Yes Questionnaire Thrive Questionnaire Date Thrive assessed: 07/09/24 I am a: Patient What is your living situation today?: I have a steady place to live Within the past 12 months, did the food you bought not last and you didn't have the money to get more?: Often true Within the past 12 months, did you worry whether your food would run out before you got money to buy more?: Often true Do you have trouble paying for medicines?: No Do you have trouble getting transportation to medical appointments?: No Do you have trouble paying your heating and electricity bill?: No Do you have trouble taking care of your child, family member or friend?: No Do you have trouble with day-to-day activities such as bathing, preparing meals, shopping, managing finances, etc.?: No Are you currently unemployed and looking for a job?: No Are you interested in more education?: I choose not to answer this question THRIVE Score: 2 AUDIT C Alcohol Use Questionnaire (AUDIT-C) 2. How many drinks containing alcohol do you have on a typical day when you are drinking?: 1 or 2 3. How often do you have six or more drinks on one occasion?: Never Total Score: 0 SUKH-7 AMB Questionnaire SUKH-7 Date SUKH - 7 assessed: 07/16/24 Source: Developed by Drs. Marcelo Chen, Maria D Ornelas, Jad Ojeda and colleagues, with an educational keo from [employer]. Review of Systems Const Details: Denies chills, Denies fatigue, Denies fever(s), Denies headache(s) and Denies weakness Cardiac Denies chest pain, Denies claudication, Denies leg edema, Denies lightheadedness, Denies palpitations, Denies dyspnea, Denies dyspnea on exertion, Denies orthopnea and Denies other (Loss of consciousness) Resp Denies cough, Denies excessive phlegm production, Denies dyspnea, Denies dyspnea on exertion, Denies snoring and Denies wheezing Physical exam (Primary Care) Tobacco/Smoking Status: Tobacco use Status Tobacco use date assessed 07/16/24 08/02/24 11:26 Patient Tobacco Use Status Never used Tobacco 08/02/24 11:26 e-Cigarette/Vaping Use Never Used 08/02/24 11:26 Thrive Assessment: Date of Thrive Assessment Date Thrive assessed 07/09/24 08/02/24 11:26 Const Other: Telehealth visit. No physical exam. Telehealth Telehealth Telehealth Platform: Telephone Location of provider rendering services: practice address Location of patient: address on file Patient Identification confirmed using: Name, : Yes Telehealth method: voice only Patient verbally consented to treatment: Yes Patient verbally consented to billing insurance company: Yes Patient informed of any privacy concerns related to visit: Yes Coding Level of Care Code Tele Est Pt Level 3 (47059) Diagnoses Elevated ALT measurement R74.01 Time Spent (min) 10 Assessment & Plan Assessment & Plan (1) Elevated ALT measurement: Code(s): R74.01 - Elevation of levels of liver transaminase levels Category: Medical Plan: Recent lab results reviewed with the patient. Unremarkable findings except for slightly elevated ALT , 43. He has history of slightly elevated AST and ALT levels. Hepatic steatosis is possible. Routine exercise and healthy diet, including low-fat encouraged. Will monitor lipid panel periodically a based on symptoms. Advised to schedule his next complete physical exam on or after 07/16/2025 or return sooner with symptoms or concerns. Verbalized understanding and agreed with treatment plan.
== END 2024-08-02 18:52 | disposition home or self-care (01) ==
LOC: HO.HMCFM 11:26
PROVIDERS: PCP Nurse Practitioner Family; Visit Provider Nurse Practitioner Family
DX: R74.01 Elevation of levels of liver transaminase levels (principal)

== ENCOUNTER → 2024-08-28 12:51 | Outpatient (REF) | payer OTHER, SELFPAY ==
--- OUTSIDE RECORDS SUMMARY | 2024-08-28 13:14 | XMS_ITS | Encounter Summary ---
Author Organization [facility] Address [address] [place] [address] Phone Care Team Providers Care Director Of Coding Name Role Phone Marcelo Salazar Primary Care Provider [phone] Encounter Details Date Type Department Care Team (Late st Contact Info) Description 12/12/2009 Documentation EM Family Medicine [address] [place] [address] Family Medicine, Physician [address] [place], [place] [id number] Social History Tobacco Use Types Packs/Day Years Used Date Smoking Tobacco: Never Assessed Sex and Gender Information Value Date Recorded Sex Assigned at Not on file Legal Sex Male 4:27 PM EDT Gender Identity Not on file Sexual Orientation Not on file documented as of this encounter Plan of Treatment Not on file documented as of this encounter Visit Diagnoses Not on filedocumented in this encounter Care Teams Director Of Coding Relationship Specialty Start Date End Date Marcelo Salazar [address] [place] [address] PCP - General 03/04/17 documented as of this encounter
--- OUTSIDE RECORDS SUMMARY | 2024-08-28 13:14 | XMS_ITS | Clinical Summary ---
Author Organization [facility] Address [address] [place] [address] Phone Care Team Providers Care Watershed Engineer Name Role Phone Marcelo Salazar Primary Care Provider Immunizations Name Administration Dates Next Due DT 04/11/1997 DTP 09/28/1995, 4,1993, 993 Hep B, ped/adol 03/26/1998,10/09/1997,04/11/1997 Hib (PRP-T) 04/12/1994, 4,1993, 993 IPV 11/04/2005, 4,09/28/1995, 993,1993 Influenza, injectable, trivalent 04/16/2009 MMR 04/11/1997,04/12/1994 Meningococcal Conj (Menactra) MCV4P 11/02/2005 Tdap 11/02/2005 Varicella 12/22/2007,10/09/1997 Family History Relation Name Status Comments Brother Brother: Asthma Father Alive Father: Asthma, Schizophrenia Mother Alive Mother: Asthma, Hypertension Sister Sister: Asthma Social History Tobacco Use Types Packs/Day Years Used Date Smoking Tobacco: Never Assessed Sex and Gender Information Value Date Recorded Sex Assigned at Not on file Legal Sex Male 4:27 PM EDT Gender Identity Not on file Sexual Orientation Not on file Plan of Treatment Health Maintenance Due Date Last Done Comments DTaP,Tdap,and Td Vaccines (6 - Td or Tdap) 11/03/2015 11/02/2005, 04/11/1997, 09/28/1995, Additional history exists Influenza Vaccines (#1) 2024 04/16/2009 COVID-19 Vaccine ( season) 2024 HIB Vaccines Completed 04/12/1994, 07/25, 1993, Additional history exists MMR Vaccines Completed 04/11/1997, 04/12/1994 Hepatitis B Vaccines Completed 03/26/1998, 10/09/1997, 04/11/1997 Meningococcal Vaccine Aged Out 11/02/2005 No monty chaparrita eligible based on patient's age to complete this topic IPV Vaccines Completed 11/04/2005, 10/24, 09/28/1995, Additional history exists Varicella Vaccines Completed 12/22/2007, 10/09/1997 HPV Vaccines Aged Out No longer eligi ble based on patient's age to complete this topic Hepatitis A Vaccines Aged Out No long er eligible based on patient's age to complete this topic Men B Vaccine Aged Out No longer elig ible based on patient's age to complete this topic Pneumococcal Vaccine Aged Out No long er eligible based on patient's age to complete this topic Care Teams Watershed Engineer Relationship Specialty Start Date End Date Marcelo Salazar [address] [place] [address] PCP - General 03/04/17
--- OUTSIDE RECORDS SUMMARY | 2024-08-28 13:14 | XMS_ITS | Data Portability ---
Author Organization [facility], [facility] Address [address] [place] [address] Assessment No assessment recorded. Plan of Treatment Reminders Order Date Submit Date Provider Last Modified By Organization Details Last Modified Time Details Appointments None record ed. Lab None record ed. Referral None record ed. Procedures None record ed. Surgeries None record ed. Imaging None record ed. Medication Orders None record ed. Patient TargetsNo targets recorded. Patient InstructionsNo instructions recorded. Reason for Referral None Reported. Problems Name Problem SNOMED Code Status Onset Date Resolution Date Notes Provider Name and Address Organization Details Recorded Time Abdominal pain 53036119 Completed 200406/13/2013 Not Available [facility] 3 02:01:21 Common cold 65432542 Completed 200306/13/2013 Not Available [facility] 3 02:00:28 Viral disease 93352585 Completed 200406/13/2013 Not Available [facility] 3 02:03:22 Influenza with respirator y manifestat ion other than pneumonia Completed 200406/13/2013 Not Available [facility] 3 02:03:48 Diarrhea 04864481 Completed 200406/13/2013 Not Available [facility] 3 02:02:15 Dysfunctio n of eustachian tube 88913808 Completed 200306/13/2013 Not Available [facility] 3 02:03:31 Myopia 22984049 Active 2003 Not Available [facility] 3 03:12:17 Injury of elbow 143178073 Completed 200506/13/2013 Not Available [facility] 3 02:04:03 Streptococ julieth sore throat 58072349 Completed 200406/13/2013 Not Available [facility] 3 02:02:02 Allergic asthma without status asthmaticu s 96312444 Active 2003 Not Available [facility] 3 03:12:17 Problem Notes None recorded. Medical Equipment None Reported. Vitals None Recorded Social History None recorded. Functional Status None recorded. Mental Status None recorded. Family History Nothing Reported. Medical History No medical history recorded. Past Encounters Encounter ID Performer Location Encounter Start Date Encounter Closed Date Diagnosis/Indication Diagnosis SNOMED-CT Code Diagnosis ICD10 Code Diagnosis Note [id number] [place] [facility] [place] [address] [place] [address] [place] [address] 12/11/2003 15:30:35 12/12/2003 08:46:16 [id number] [place] [facility] [place] [address] [place] [address] 01/03/2004 11:36:46 01/03/2004 17:44:59 [id number] [place] [facility] [place] [address] [place] [address] 03/20/2004 15:22:07 03/23/2004 08:22:41 [id number] Eye Care, [address] [place] [address] 04/30/2004 15:50:54 04/30/2004 16:44:58 [id number] Optical, [address] [place] [address] 04/30/2004 17:21:46 04/30/2004 17:45:36 [id number] [facility] [place] [address] [place] [address] 05/25/2004 15:44:55 08/14/2008 02:02:29 [id number] [facility] [place] [address] [place] [address] 08/10/2004 14:05:58 08/11/2004 15:49:35 [id number] [facility] [place] [address] [place] [address] 09/14/2004 13:14:17 09/14/2004 17:29:49 [id number] [place] [address] [place] [address] 10/02/2004 15:08:02 10/02/2004 17:43:48 [id number] Radiology , [address] [place] [address] 10/12/2004 12:39:48 10/12/2004 14:00:52 [id number] Radiology , [facility] [place] [address] [place] [address] 10/12/2004 00:00:00 08/14/2008 02:02:29 [id number] , [facility] [place] [address] [place] [address] 10/12/2004 11:48:55 10/13/2004 09:50:50 [id number] , [facility] [place] [address] [place] [address] 01/04/2005 13:50:49 01/05/2005 09:44:45 [id number] Radiology , [facility] [place] [address] [place] [address] 10/01/2005 15:57:21 10/04/2005 08:22:52 [id number] Optical, [facility] [place] [address] [place] [address] 07/17/2008 08:50:17 08/14/2008 02:02:29 Health Concerns Section Related Observation LastModified by Organization Detai ls LastModified Time None Recorded Concern Status LastModified by Organization Details LastModified Time None Recorded Advance Directives Directive None Recorded Payers Encounter Date Sequence Insurance Name Policy Number Policy Boyd Covered Member ID Boyd Member ID Guarantor Name 10/12/2004 1 [place] Crystal Del Castillo [id number] Sarbjit Del Castillo 10/12/2004 1 [place] Crystal Del Castillo [id number] Sarbjit Del Castillo 01/04/2005 1 [facility] (MEDICAID HMO) [id number] Sarbjit Del Castillo [id number] Sarbjit Del Castillo 10/01/2005 1 [facility] [place]MEDICAID HMO) [id number] Sarbjit Del Castillo [id number] Sarbjit Del Castillo 07/17/2008 1 [facility] (MEDICAID HMO) [id number] Sarbjit Del Castillo [id number] Sarbjit Del Castillo
--- OUTSIDE RECORDS SUMMARY | 2024-08-28 13:14 | XMS_ITS | Encounter Summary ---
Author Organization [facility] Address [address] [place] [address] Phone Care Team Providers Care Public Health Veterinarian Name Role Phone Marcelo Salazar Primary Care Provider [phone] Encounter Details Date Type Department Care Team (Late st Contact Info) Description 03/10/2017 Conversion Encounter [facility] [place] [address] [place] [address] Social History Tobacco Use Types Packs/Day Years [...] on filedocumented in this encounter Care Teams Public Health Veterinarian Relationship Specialty Start Date End Date Marcelo Salazar [address] [place] [address] PCP - General 03/04/17 documented as of this encounter
== END ==
LOC: HO.SL 12:51
PROVIDERS: PCP Nurse Practitioner Family; Visit Provider Physician Assistant Medical
DX: R06.83 Snoring (principal); G47.19 Other hypersomnia
CPT/HCPCS: 95806

== ENCOUNTER → 2024-08-28 19:00 | Outpatient (BNV) | payer OTHER, SELFPAY | PROVIDERS: PCP Nurse Practitioner Family; Visit Provider Psychiatry & Neurology Neurology | DX: R06.83 Snoring (principal) | CPT/HCPCS: 95806 ==

== ENCOUNTER 2024-10-10 10:22 | Outpatient (REF) | payer OTHER, SELFPAY ==
[2024-10-10 14:06] LABS: Influenza A PCR NEGATIVE (Negative); Influenza B PCR NEGATIVE (Negative); Resp Syncy Virus RNA Qual PCR NEGATIVE (Negative); SARS COV2 PCR INHOUSE NEGATIVE (Negative)
== END 2024-10-10 10:23 | disposition home or self-care (01) ==
LOC: HO.LAB 10:22
PROVIDERS: Physician Assistant; PCP Nurse Practitioner Family
DX: R09.89 Other specified symptoms and signs involving the circulatory and respiratory systems (principal); J45.901 Unspecified asthma with (acute) exacerbation
CPT/HCPCS: 0241U; 99212

== ENCOUNTER 2024-10-10 10:22 | Outpatient (AMB) | payer OTHER, SELFPAY ==
--- NOTE | 2024-10-10 10:49 | MHC.OFFWIV ---
Intake Vital Signs 10/10/24 11:03 Height 5 ft 10 in Weight 209 lb 8 oz BMI 30.1 BP 132/86 Blood Pressure Location Lt brachial Position Sitting Pulse 84 Pulse Source Pulse Oximeter Temp 98.3 F Temp Source Oral Pulse Oximetry (%) 100 Oxygen Delivery Method Room Air Intake Visit Reasons: EP Asthma, chest discomfort/upper back pain, sob Intake Note: Pt presents to the office today for c/o chest and sinus congestion. Pt states this started yesterday. Patient Tobacco Use Status: Never used Tobacco Allergies shellfish derived Allergy (Verified 10/10/24 10:49) Anaphylaxis HPI HPI Comments History of Present Illness Details History - The patient is a 29 year old male presenting with an asthma flare accompanied by severe nasal congestion and a persistent headache. - Allergy-induced asthma exacerbated by allergies has led to respiratory issues characterized by significant wheezing unresponsive to current albuterol inhaler use. - Symptoms began the previous day following a day of sneezing and congestion, which resulted in a persistent and severe headache. - The patient denies associated fever and reports not utilizing any medication for the headache. - Notable nasal congestion and ear fullness associated with allergies, producing symptoms snow to pressure sensation. - The patient expressed a need for the refill of Symbicort?, which had been refilled last in June, from [facility] pharmacy, and is asking about allergy shots for future management. -Also seeking refill on Zyrtec Physical Exam General: Cooperative, healthy appearing, comfortable and no acute distress Orientation/consciousness: Patient oriented x3 Limitations: No limitations Head: Normal to inspection Ears: Hearing grossly normal bilaterally, external ears normal, TM's red bilaterally Nose: Normal external nose present, Normal nares present and No nasal discharge present Face and sinus: Normal facial exam and Yes sinuses nontender Mouth: Normal oral and palatal mucosa present and moist mucous membranes Throat: Yes tonsils normal, Yes uvula midline. Posterior oropharynx erythema with cobblestoning Eyes: Appearance normal, both eyes and all related structures Neck: Normal visual inspection Respiratory: Clear to auscultation bilaterally. Normal respiratory effort, able to speak in complete sentences, Actively coughing, no respiratory distress, not tachypneic, no tripod positioning and no use of accessory muscles, expiratory wheeze present Cardiovascular: Regular rate and rhythm. 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 Current occupational exposures/hazards: No Cognitive needs: No Hearing needs: No Vision needs: Yes Review of Systems Const All systems reviewed & are unremarkable except as noted in HPI and below Physical Exam Vital Signs: Last Vital Signs Temp 98.3 F 10/10/24 11:03 Pulse 84 10/10/24 11:03 BP 132/86 10/10/24 11:03 Pulse Ox 100 10/10/24 11:03 Oxygen Delivery Method Room Air 10/10/24 11:03 BMI result Body Mass Index 30.1 Assessment & Plan Assessment & Plan (1) Asthma exacerbation, mild: Code(s): J45.901 - Unspecified asthma with (acute) exacerbation Plan: Plan To address the asthma exacerbation triggered by allergies vs viral infection, I have prescribed Prednisone 40 mg daily for five days as an oral steroid burst. This is anticipated to reduce inflammation and improve acute respiratory symptoms. Due to the patient's use of Symbicort? and the need for ongoing asthma control, pt should be able to refill through [facility] as given RX in wth 6 refills. Flonase? is prescribed to manage allergic rhinitis symptoms with instructions for proper use to increase effectiveness. To evaluate potential viral elements, testing for COVID-19, RSV, and influenza will be pursued. Test result communication will follow up either by the end of the day or, if not available, by the next morning. Given interest in allergy shots for long-term management, a message was sent to his PCP for consideration, along with [facility] refill request. Patient was informed and verbally consented to the use of an ambient scribe for clinic note documentation during this visit Orders: Orders SARS-CoV2/FLU/RSV Today R09.89 - Other specified symptoms and signs involving the circulatory and respiratory systems Medications: New prednisone 40 mg (2 x 20 mg) PO DAILY 10 tabs 0RF fluticasone propionate 50 mcg/actuation administer into each nostril 1 spray intranasal Q12H 90 days 16 grams 0RF Coding Level of Care Code Est Pt Level 3 (03169) Diagnoses Asthma exacerbation, mild J45.901
[2024-10-10 11:03] VITALS: BP 132/86; PULSE 84; TEMP 36.8; O2SAT 100; BMI 30.1
--- OUTSIDE RECORDS SUMMARY | 2024-10-10 12:08 | XMS_ITS | Encounter Summary ---
Author Organization [facility] Address [address] [place] [address] Care Team Providers Care Cutter Finisher Name Role Phone Jadyn Rachel MD Primary Care Provider Unavail able Encounter Details Date Type Department Care Team Description 09/08/2018 Release of Information Medical Records [address] [place] [address] Abstract, Provider Social History Tobacco Use Types Packs/Day Years Used Date Smoking Tobacco: Never Smokeless Tobacco: Never Alcohol Use Standard Drinks/Week Comments No 0 (1 standard drink = 0.6 oz pur e alcohol) Sex Assigned at Date Recorded Not on file documented as of this encounter Plan of Treatment Not on file documented as of this encounter Visit Diagnoses Not on filedocumented in this encounter Care Teams Cutter Finisher Relationship Specialty Start Date End Date Jadyn Rachel MD PCP - General Internal Medicine 08/24/18 documented as of this encounter
--- OUTSIDE RECORDS SUMMARY | 2024-10-10 12:08 | XMS_ITS | Data Portability ---
Author Organization [facility], [facility] Address [address] [place] [address] Assessment No assessment recorded. Plan of Treatment [...] Address Organization Details Recorded Time Abdominal pain 30846645 Completed 200406/13/2013 Not Available [facility] 3 02:01:21 Common cold 24797596 Completed 200306/13/2013 Not Available [facility] 3 02:00:28 Viral disease 79226133 Completed 200406/13/2013 Not Available [facility] 3 02:03:22 Influenza with respirator y manifestat ion other than pneumonia Completed 200406/13/2013 Not Available [facility] 3 02:03:48 Diarrhea 06379470 Completed 200406/13/2013 Not Available [facility] 3 02:02:15 Dysfunctio n of eustachian tube 62858985 Completed 200306/13/2013 Not Available [facility] 3 02:03:31 Myopia 13614660 Active 2003 Not Available [facility] 3 03:12:17 Injury of elbow 852513360 Completed 200506/13/2013 Not Available [facility] 3 02:04:03 Streptococ julieth sore throat 02443312 Completed 200406/13/2013 Not Available [facility] 3 02:02:02 Allergic asthma without status asthmaticu s 50303126 Active 2003 Not Available [facility] 3 03:12:17 Problem Notes None recorded. Medical Equipment None Reported. Vitals None Recorded Social History None recorded. Functional Status None recorded. Mental Status None recorded. Family History Nothing Reported. Medical History No medical history recorded. Past Encounters Encounter ID Performer Location Encounter Start Date Encounter Closed Date Diagnosis/Indication Diagnosis SNOMED-CT Code Diagnosis ICD10 Code Diagnosis Note [id number] [facility] [place] [address] [place] [address] [place] [address] 12/11/2003 15:30:35 12/12/2003 08:46:16 [id number] AI [facility] [place] [address] [place] [address] 01/03/2004 11:36:46 01/03/2004 17:44:59 [id number] AI [facility] [place] [address] [place] [address] 03/20/2004 15:22:07 03/23/2004 08:22:41 [id number] Eye Care, [address] [place] [address] 04/30/2004 15:50:54 04/30/2004 16:44:58 [id number] Optical, [address] [place] [address] 04/30/2004 17:21:46 04/30/2004 17:45:36 [id number] AI [facility] [place] [address] [place] [address] 05/25/2004 15:44:55 08/14/2008 02:02:29 [id number] AI [facility] [place] [address] [place] [address] 08/10/2004 14:05:58 08/11/2004 15:49:35 [id number] AI [facility] [place] [address] [place] [address] 09/14/2004 13:14:17 09/14/2004 17:29:49 [id number] AI [place] [address] [place] [address] 10/02/2004 15:08:02 10/02/2004 17:43:48 [id number] Radiology , [address] [place] [address] 10/12/2004 12:39:48 10/12/2004 14:00:52 [id number] Radiology , [facility] [place] [address] [place] [address] 10/12/2004 00:00:00 08/14/2008 02:02:29 [id number] , [facility] [place], OFFICE [address] [place] [address] 10/12/2004 11:48:55 10/13/2004 09:50:50 [id number] , [facility] [place], OFFICE [address] [place] [address] 01/04/2005 13:50:49 01/05/2005 09:44:45 [id number] Radiology , [facility] [place] [address] [facility] [place] [address] 10/01/2005 15:57:21 10/04/2005 08:22:52 [id number] Optical, [facility] [place] [address] [place] [address] 07/17/2008 08:50:17 08/14/2008 02:02:29 Health Concerns Section Related Observation LastModified by Organization Detai ls LastModified Time None Recorded Concern Status LastModified by Organization Details LastModified Time None Recorded Advance Directives Directive None Recorded Payers Encounter Date Sequence Insurance Name Policy Number Policy Boyd Covered Member ID Boyd Member ID Guarantor Name 10/12/2004 1 [place] Crystal Del Castillo [id number] Sarbjit Del Castillo 10/12/2004 1 [place] Crystal Del Castillo [id number] Sarbjit Del Castillo 01/04/2005 1 [facility] HEALTHFIRST[place] - HEALTH NET PLAN (MEDICAID HMO) [id number] Sarbjit Del Castillo [id number] Sarbjit Del Castillo 10/01/2005 1 [facility] HEALTHFIRSTHEALTH - HEALTH NET PLAN (MEDICAID HMO) [id number] Sarbjit Del Castillo [id number] Sarbjit Del Castillo 07/17/2008 1 [facility] [employer]FIRSTHEALTH - HEALTH NET PLAN (MEDICAID HMO) [id number] Sarbjit Del Castillo [id number] Sarbjit Del Castillo
--- OUTSIDE RECORDS SUMMARY | 2024-10-10 12:08 | XMS_ITS | Clinical Summary ---
Author Organization [facility] Address [address] [place] [address] Phone Care Team Providers Care Road Roller Operator Name Role Phone Salazar Marcelo Brianna Primary Care Provider [phone] Immunizations Immunization Administration Dates Next Due DT 04/11/1997 DTP [...] age to complete this topic Care Teams Road Roller Operator Relationship Specialty Start Date End Date Marcelo Salazar [address] [place] [id number] PCP - General 03/04/17
--- OUTSIDE RECORDS SUMMARY | 2024-10-10 12:08 | XMS_ITS | Clinical Summary ---
Author Organization [facility] Address [address] [place] [address] Care Team Providers Care Automotive Professional Name Role Phone Jadyn Rachel MD Primary Care Provider Unavail able Allergies No known active allergies Medications Medication Sig Dispensed Refills Start Date End Date Status montelukast (SINGULAIR) 10 MG tablet Take 1 Tab by mouth at bedtime. 30 Tab 5 08/29/2018 Active loratadine (CLARITIN) 10 MG tablet Take 1 Tab by mouth daily. 30 Tab 5 08/29/2018 Active ALBUTEROL SULFATE 108 (90 BASE) MCG/ACT Aero Soln Inhale 2 Puffs into the lungs every 4 hours as needed for Cough, Wheezing or Shortness of Breath. 1 Inhaler 5 08/29/2018 Active albuterol (PROVENTIL) (2.5 MG/3ML) 0.083% nebulizer solution TAKE 1 VIAL BY NEBULIZATION EVERY 4 HOURS NEEDED FOR WHEEZING FOR UP TO 180 DAYS. 150 mL 0 01/03/2019 Active Active Problems Problem Noted Date Nonalcoholic steatohepatitis 06/28/2017 Mild intermittent asthma 12/29/2011 Allergic rhinitis 12/29/2011 Immunizations Name Administration Dates Next Due DTP 09/28/1995, 4,1993,03/25 Gardasil 9 (Hpv) 02/27/2019,10/27/2018, 9 HIB 04/12/1994, 4,1993,03/25 HPV (Gardasil) 03/03/2011 Hepatitis B-3 Dose (<19yrs) 03/26/1998, 8,04/11/1997 Influenza (> 6 Months) 04/16/2009 Influenza H1N1 Pandemic Flu Vaccine 07/23/2009 MMR (Mfrbcfu-Rsxbm-Scscswv) 04/11/1997, 4 Meningococcal (Menactra) 11/02/2005 Polio (IPV) 11/20/2003, 6,1993,03/25 Polio (OPV) 1993 TD (STATE SUPPLIED FOR ADULT S AND CHILDREN) 04/11/1997 Tdap 08/29/2018,11/02/2005 Varicella 12/22/2007,10/09/1997 Family History Medical History Relation Name Comments Asthma Brother Glaucoma Father Depression/Anxiety Mother Asthma Sister Relation Name Status Comments Brother Alive Father Alive Mother Alive Sister Alive Social History Tobacco Use Types Packs/Day Years Used Date Smoking Tobacco: Never Smokeless Tobacco: Never Tobacco Cessation:Counseling Given: No Alcohol Use Standard Drinks/Week Comments No 0 (1 standard drink = 0.6 oz pur e alcohol) Sex Assigned at Date Recorded Not on file Last Filed Vital Signs Vital Sign Reading Time Taken Comments Blood Pressure 124/69 11/20/2018 8:40 AM EDT Pulse 64 11/20/2018 8:40 AM EDT Temperature 36.6 ??C (97.8 ??F) 11/20/2018 8:40 AM ED T Respiratory Rate 19 10/23/2018 8:38 AM EDT Oxygen Saturation - - Inhaled Oxygen Concentration - - Weight 100.2 kg (220 lb 12.8 oz) 11/20/2018 8:40 AM EDT Height 177.8 cm (5' 10 ) 11/20/2018 8:40 AM EDT Body Mass Index 31.68 11/20/2018 8:40 AM EDT Plan of Treatment Health Maintenance Due Date Last Done Comments Covid-19 Vaccine (#1) 1993 PNEUMOCOCCAL VACCINE FOR HIG H RISK PATIENTS (#1) 01/13/2012 BASELINE HEALTH EXAM 18-39 12/11/2018 12/11/2013 CHOLESTEROL SCREENING 08/29/2023 08/29/2018, 014 INFLUENZA (#1) 2024 08/29/2018 (Refu sed), 04/16/2009 BMI CHECK/ADVISE 07/25/2024 10/23/2018, 11/2018, 06/28/2017, Additional history exists DEPRESSION SCREENING/FOLLOWUP 07/25/2024 SOCIAL NEEDS SCREENING 07/25/2024 DTAP/TDAP/TD (7 - Td or Tdap) 08/29/2028, 11/02/2005, 04/11/1997, Additional history exists Care Teams Automotive Professional Relationship Specialty Start Date End Date Jadyn Rachel MD PCP - General Internal Medicine 08/24/18
--- OUTSIDE RECORDS SUMMARY | 2024-10-10 12:08 | XMS_ITS | Encounter Summary ---
Author Organization [facility] Address [address] [place] [address] Phone Care Team Providers Care Calender Roll Operator Name Role Phone Marcelo Salazar Primary Care Provider [phone] Encounter Details Date Type Department Care Team (Late st Contact Info) Description 03/10/2017 Conversion Encounter [facility] [place] [address] [place] [address] Social History Tobacco Use Types Packs/Day Years [...] on filedocumented in this encounter Care Teams Calender Roll Operator Relationship Specialty Start Date End Date Marcelo Salazar [address] [place] [address] PCP - General 03/04/17 documented as of this encounter
--- OUTSIDE RECORDS SUMMARY | 2024-10-10 12:08 | XMS_ITS | Encounter Summary ---
Author Organization [facility] Address [address] [place] [address] Phone Care Team Providers Care Candy Spreader Name Role Phone Marcelo Salazar Primary Care Provider [phone] Encounter Details Date Type Department Care Team (Late st Contact Info) Description 12/12/2009 Documentation [facility] Family Medicine [address] [place] [address] Family Medicine, Physician [address] [place], [place] [address] Social History Tobacco Use Types Packs/Day Years [...] on filedocumented in this encounter Care Teams Candy Spreader Relationship Specialty Start Date End Date Marcelo Salazar [address] [place] [address] PCP - General 03/04/17 documented as of this encounter
== END 2024-10-10 11:43 | disposition home or self-care (01) ==
PROVIDERS: PCP Nurse Practitioner Family; Visit Provider Physician Assistant
DX: J45.901 Unspecified asthma with (acute) exacerbation (principal)

== ENCOUNTER 2024-10-17 09:52 | Outpatient (AMB) | payer OTHER, SELFPAY ==
[2024-10-17 09:55] VITALS: BP 120/72; PULSE 76; O2SAT 98; BMI 29.6
--- NOTE | 2024-10-17 09:55 | A.OFFVIS_ITS ---
Vital Signs 10/17/24 09:55 Height 5 ft 10 in Weight 206 lb BMI 29.6 BP 120/72 Blood Pressure Location Lt brachial Position Sitting Pulse 76 Pulse Source Pulse Oximeter Pulse Oximetry (%) 98 Oxygen Delivery Method Room Air Intake Visit Reasons: 3 mnts f/u appt Intake Note: Patient presents follow up MARGI. HST in chart. Allergies shellfish derived Allergy (Verified 10/17/24 10:00) Anaphylaxis HPI Comments Details: 29 y/o PMH of Hirschsprung with colostomy and asthma, referred to us for sleep evaluation. HST: AHI was 3 and Oxygen was 88%, did not show sleep apnea. Interval Medical History: He went to the Urgent care last week, due to an asthma exacerbation, was treated with Prednisone. He continues to have excessive daytime fatigue and loud snoring, per partner. 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 He wakes up at 6am daily and has no issues getting up in the morning, and feels exhausted, uses red light therapy at night. He takes a nap daily around 2pm, feels he has low energy and feels refreshed after his 1-2 hours of daily nap. He exercises 3-5 times a week doing high intensity target work outs. His mood is good, has asthma, allergies. He has headaches, coughing, allergic conjunctivitis, head feels like it is under water, and nose feels swollen. Denies acid reflux, does experience occasional stomach upset and is well controlled with diet. He does not smoke, or drink alcohol. 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 Current occupational exposures/hazards: No Cognitive needs: No Hearing needs: No Vision needs: Yes Review of Systems Const All systems reviewed & are unremarkable except as noted in HPI and below ENT Reports Normal hearing present Neuro Reports Normal hearing present Physical Exam Vital Signs: Last Vital Signs Pulse 76 10/17/24 09:55 BP 120/72 10/17/24 09:55 Pulse Ox 98 10/17/24 09:55 Oxygen Delivery Method Room Air 10/17/24 09:55 BMI result Body Mass Index 29.6 Const General: cooperative, comfortable and no acute distress Nutritional Appearance: average body habitus Orientation/consciousness: patient oriented x3 HEENT Throat: Yes other ([place] score of 2) Eyes Pupils: Equal, round and reactive pupils present Resp Effort & Inspection: normal respiratory effort and able to speak in complete sentences Neuro General: patient oriented x3 and moves all extremities Cranial nerves: Yes CN's II-XII intact bilaterally, Yes Facial sensation intact/muscles of mastication intact, Yes Equal, round and reactive pupils present, Yes Normal accommodation reflex present, Yes Bilaterally intact EOM present, Yes Nystagmus not present, Yes Normal facial strength present, Yes Midline tongue present, Yes Symmetric palate elevation present, Yes Normal hearing present, Yes Ability to bilaterally rotate head present and Yes Ability to bilaterally elevate shoulders present Motor exam (neuro): 5/5 motor strength present throughout Deep tendon reflexes (DTR's): Right triceps reflex intensity grade: 2+, Left triceps reflex intensity grade: 2+, Rt Biceps (C5, C6): 2+, Left biceps reflex intensity grade: 2+, Right brachioradialis reflex intensity grade: 2+, Left brachioradialis reflex intensity grade: 2+, Right patellar reflex intensity grade: 2+ and Left patellar reflex intensity grade: 2+ Coordination: [id number]-bp-hrpb test normal Psych Appearance: grossly normal Mental Status: mental status grossly normal Speech and movement: Normal speech and movement present Affect: normal affect Attitude: cooperative Thought process: Normal thought process present Thought content: Normal thought content present Insight: Good insight present (Psych) Judgement: Good judgement present (Psych) Results Reviewed Results Reviewed: HST AHI was 3 and Oxygen Luis to 88%, does not have sleep apnea. Assessment & Plan Assessment & Plan (1) Asthma exacerbation, mild: Onset Date: ~10/17/24 Code(s): J45.901 - Unspecified asthma with (acute) exacerbation Category: Medical Plan Fatigue and Fragmented Sleep, Reviewed HST. PFTs for Asthma Exacerbation ENT f/u in future if symptoms of allergies and URI does not resolve. Orders: Orders PFT pulmonary function test Today J45.901 - Unspecified asthma with (acute) exacerbation Patient Instructions: Sleep Hygiene provided: set a scheduled bedtime and wake time to help regulate the circadian rhythm and balance the release of pituitary hormones. Sleep in a dark room, temperatures below 68 degrees, and no devices n bed. Limit caffeinated products 6 hours prior to bed, and limit fluids 2-4 hours prior to bed. Gentle night yoga, diffusing essential oils, and playing soft music can be relaxing. Asthma Exacerbation repeated, will evaluate with PFTs. ENT will f/u due to inflammation and URI with coughing, Headaches, allergic conjuntivitis, ear feel like they are under water, muffled sounds, unable to get enough air in. Coding Level of Care Code Est Pt Level 4 (66018) Diagnoses Asthma exacerbation, mild J45.901 Time Spent (min) 20
--- OUTSIDE RECORDS SUMMARY | 2024-10-17 11:11 | XMS_ITS | Encounter Summary ---
Author Organization [facility] Address [address] [place] [address] Phone Care Team Providers Care Floor Layer Name Role Phone Marcelo Salazar Primary Care Provider [phone] Encounter Details Date Type Department Care Team (Late st Contact Info) Description 03/10/2017 Conversion Encounter [facility] [place] [address] [place] [address] Social History Tobacco Use Types Packs/Day Years [...] on filedocumented in this encounter Care Teams Floor Layer Relationship Specialty Start Date End Date Marcelo Salazar [address] [place] [address] PCP - General 03/04/17 documented as of this encounter
--- OUTSIDE RECORDS SUMMARY | 2024-10-17 11:11 | XMS_ITS | Encounter Summary ---
Author Organization [facility] Address [address] [place] [address] Phone Care Team Providers Care Skidder Loader Name Role Phone Marcelo Salazar Primary Care Provider [phone] Encounter Details Date Type Department Care Team (Late st Contact Info) Description 12/12/2009 Documentation EM Family Medicine [address] [place] [address] Family Medicine, Physician [address] [place], [place] [id number] Social History Tobacco Use Types Packs/Day Years [...] on filedocumented in this encounter Care Teams Skidder Loader Relationship Specialty Start Date End Date Marcelo Salazar [address] [place] [address] PCP - General 03/04/17 documented as of this encounter
--- OUTSIDE RECORDS SUMMARY | 2024-10-17 11:11 | XMS_ITS | Clinical Summary ---
Author Organization [facility] Address [address] [place] [address] Phone Care Team Providers Care Turf Manager Name Role Phone Salazar Marcelo Brianna Primary Care Provider [phone] Immunizations Immunization Administration Dates Next Due DT [...] age to complete this topic Care Teams Turf Manager Relationship Specialty Start Date End Date Marcelo Salazar [address] [place] [address] PCP - General 03/04/17
== END 2024-10-17 10:26 | disposition home or self-care (01) ==
LOC: HO.HSMS 09:53
PROVIDERS: PCP Nurse Practitioner Family; Visit Provider Physician Assistant Medical
DX: J45.901 Unspecified asthma with (acute) exacerbation (principal)
CPT/HCPCS: 99214

== ENCOUNTER → 2024-10-17 09:52 | Outpatient (BNVA) | payer OTHER, SELFPAY | PROVIDERS: PCP Nurse Practitioner Family; Visit Provider Physician Assistant Medical | DX: J45.901 Unspecified asthma with (acute) exacerbation (principal) | CPT/HCPCS: 99212 ==

== ENCOUNTER 2024-10-26 23:56 | Emergency (ER) | payer OTHER, SELFPAY ==
--- OUTSIDE RECORDS SUMMARY | 2024-10-27 00:41 | XMS_ITS | Encounter Summary ---
Author Organization [facility] Address [address] [place] [address] Phone Care Team Providers Care Whale Trainer Name Role Phone Marcelo Salazar Primary Care Provider [phone] Encounter Details Date Type Department Care Team (Late st Contact Info) Description 12/12/2009 Documentation EM Family Medicine [address] [place] [address] Family Medicine, Physician [address] [place], [place] [address] Social History Tobacco Use Types Packs/Day Years [...] on filedocumented in this encounter Care Teams Whale Trainer Relationship Specialty Start Date End Date Marcelo Salazar [address] [place] [address] PCP - General 03/04/17 documented as of this encounter
--- OUTSIDE RECORDS SUMMARY | 2024-10-27 00:41 | XMS_ITS | Encounter Summary ---
Author Organization [facility] Address [address] [place] [address] Phone Care Team Providers Care Trader Fixed Income Name Role Phone Marcelo Salazar Primary Care Provider [phone] Encounter Details Date Type Department Care Team (Late st Contact Info) Description 03/10/2017 Conversion Encounter [facility] [place] [address] [place] [address] Social History Tobacco Use Types Packs/Day Years [...] on filedocumented in this encounter Care Teams Trader Fixed Income Relationship Specialty Start Date End Date Marcelo Salazar [address] [place] [address] PCP - General 03/04/17 documented as of this encounter
--- OUTSIDE RECORDS SUMMARY | 2024-10-27 00:41 | XMS_ITS | Clinical Summary ---
Author Organization [facility] Address [address] [place] [address] Phone Care Team Providers Care Instructional Services Specialist Name Role Phone Salazar Marcelo Brianna Primary Care Provider [phone] Immunizations Immunization Administration Dates Next Due DT [...] age to complete this topic Care Teams Instructional Services Specialist Relationship Specialty Start Date End Date Marcelo Salazar [address] [place] [address] PCP - General 03/04/17
--- OUTSIDE RECORDS SUMMARY | 2024-10-27 00:41 | XMS_ITS | Data Portability ---
Author Organization [facility], [facility] Address [address] [place] [address] Assessment No assessment recorded. Plan of Treatment [...] Address Organization Details Recorded Time Abdominal pain 08221679 Completed 200406/13/2013 Not Available [facility] 3 02:01:21 Common cold 91230747 Completed 200306/13/2013 Not Available [facility] 3 02:00:28 Viral disease 59875119 Completed 200406/13/2013 Not Available [facility] 3 02:03:22 Influenza with respirator y manifestat ion other than pneumonia Completed 200406/13/2013 Not Available [facility] 3 02:03:48 Diarrhea 54014252 Completed 200406/13/2013 Not Available [facility] 3 02:02:15 Dysfunctio n of eustachian tube 47158548 Completed 200306/13/2013 Not Available [facility] 3 02:03:31 Myopia 94693602 Active 2003 Not Available [facility] 3 03:12:17 Injury of elbow 189455256 Completed 200506/13/2013 Not Available [facility] 3 02:04:03 Streptococ julieth sore throat 84873005 Completed 200406/13/2013 Not Available [facility] 3 02:02:02 Allergic asthma without status asthmaticu s 61631059 Active 2003 Not Available [facility] 3 03:12:17 Problem Notes None recorded. Medical Equipment None Reported. Vitals None Recorded Social History None recorded. Functional Status None recorded. Mental Status None recorded. Family History Nothing Reported. Medical History No medical history recorded. Past Encounters Encounter ID Performer Location Encounter Start Date Encounter Closed Date Diagnosis/Indication Diagnosis SNOMED-CT Code Diagnosis ICD10 Code Diagnosis Note [id number] AI [facility], OFFICE [address] [place] [address] [place] [address] 12/11/2003 15:30:35 12/12/2003 08:46:16 [id number] AI [facility] [place] [address] [place] [address] 01/03/2004 11:36:46 01/03/2004 17:44:59 [id number] AI [facility] [address] [place] [address] 03/20/2004 15:22:07 03/23/2004 08:22:41 [id number] Eye Care, [address] [place] [address] 04/30/2004 15:50:54 04/30/2004 16:44:58 [id number] Optical, [address] [place] [address] 04/30/2004 17:21:46 04/30/2004 17:45:36 [id number] AI [facility] [place] [address] [place] [address] 05/25/2004 15:44:55 08/14/2008 02:02:29 [id number] AI [facility] [place] [address] [place] [address] 08/10/2004 14:05:58 08/11/2004 15:49:35 [id number] [facility] [place] [address] [place] [address] 09/14/2004 13:14:17 09/14/2004 17:29:49 [id number] [place] [address] [place] [address] 10/02/2004 15:08:02 10/02/2004 17:43:48 [id number] Radiology , [address] [place] [address] 10/12/2004 12:39:48 10/12/2004 14:00:52 [id number] Radiology , [facility] [address] [place] [address] 10/12/2004 00:00:00 08/14/2008 02:02:29 [id number] , [facility], OFFICE [address] [place] [address] 10/12/2004 11:48:55 10/13/2004 09:50:50 [id number] , [facility], OFFICE [address] [place] [address] 01/04/2005 13:50:49 01/05/2005 09:44:45 [id number] Radiology , [facility] [address] [facility] [place] [address] 10/01/2005 15:57:21 10/04/2005 08:22:52 [id number] Optical, [facility] [address] [place] [address] 07/17/2008 08:50:17 08/14/2008 02:02:29 Health Concerns Section Related Observation LastModified by Organization Detai ls LastModified Time None Recorded Concern Status LastModified by Organization Details LastModified Time None Recorded Advance Directives Directive None Recorded Payers Encounter Date Sequence Insurance Name Policy Number Policy Boyd Covered Member ID Boyd Member ID Guarantor Name 10/12/2004 1 [place] Crystal Del Castillo [id number] Sarbjit Del Castillo 10/12/2004 1 [place] Crystal Del Castillo [id number] Sarbjit Del Castillo 01/04/2005 1 [facility] (MEDICAID HMO) [id number] Sarbjit Del Castillo [id number] Sarbjit Del Castillo 10/01/2005 1 [facility] (MEDICAID HMO) [id number] Sarbjit Del Castillo [id number] Sarbjit Del Castillo 07/17/2008 1 [facility] (MEDICAID HMO) [id number] Sarbjit Del Castillo [id number] Sarbjit Del Castillo
== END 2024-10-27 00:45 | disposition left against medical advice (07) ==
PROVIDERS: Emergency Provider Internal Medicine; PCP Nurse Practitioner Family
DX: J45.909 Unspecified asthma, uncomplicated (principal); Z53.21 Procedure and treatment not carried out due to patient leaving prior to being seen by health care provider

== ENCOUNTER 2024-11-27 12:58 | Outpatient (REF) | payer OTHER, SELFPAY ==
--- NOTE | 2024-11-27 13:06 | PFT_ITS ---
Indication: Asthma Spirometry [FEV1 to FVC 81%; FEV1 4.24 L; FVC 5.25 L. there was not significant response to bronchodilators noted. To note the FEF 12/11/2074 decreasing 57% predicted] Lung Volumes [Total lung capacity 89% predicted] Diffusion Capacity [DLCO 99% predicted] Comparisons [none] Interpretation [No obstructive nor restrictive ventilatory defects identified. There is significant response to bronchodilators noted. Significant small airways disease consistent with the patient's history of asthma. Lung volumes and diffusing capacity within normal limits. Clinical correlation warranted.] MTDD
[2024-11-27 13:42] VITALS: PULSE 59; O2SAT 99
--- OUTSIDE RECORDS SUMMARY | 2024-11-27 14:09 | XMS_ITS | Encounter Summary ---
Author Organization [facility] Address [address] [place] [address] Phone Care Team Providers Care Head Field Hockey Coach Name Role Phone Marcelo Salazar Primary Care Provider [phone] Encounter Details Date Type Department Care Team (Late st Contact Info) Description 03/10/2017 Conversion Encounter [facility] [place] [address] [place] [address] Social History Tobacco Use Types Packs/Day Years [...] on filedocumented in this encounter Care Teams Head Field Hockey Coach Relationship Specialty Start Date End Date Marcelo Salazar [address] [place] [address] PCP - General 03/04/17 documented as of this encounter
--- OUTSIDE RECORDS SUMMARY | 2024-11-27 14:09 | XMS_ITS | Clinical Summary ---
Author Organization [facility] Address [address] [place] [address] Phone Care Team Providers Care Associate Spa Director Name Role Phone Salazar Marcelo Brianna Primary Care Provider [phone] Immunizations Immunization Administration Dates Next Due DT [...] age to complete this topic Care Teams Associate Spa Director Relationship Specialty Start Date End Date Marcelo Salazar [address] [place] [address] PCP - General 03/04/17
--- OUTSIDE RECORDS SUMMARY | 2024-11-27 14:09 | XMS_ITS | Data Portability ---
Author Organization [facility], [facility] Address [address] [place] [address] Assessment No assessment recorded. Plan of Treatment [...] Address Organization Details Recorded Time Abdominal pain 89192085 Completed 200406/13/2013 Not Available [facility] 3 02:01:21 Common cold 54510366 Completed 200306/13/2013 Not Available [facility] 3 02:00:28 Viral disease 18852071 Completed 200406/13/2013 Not Available [facility] 3 02:03:22 Influenza with respirator y manifestat ion other than pneumonia Completed 200406/13/2013 Not Available [facility] 3 02:03:48 Diarrhea 61018294 Completed 200406/13/2013 Not Available [facility] 3 02:02:15 Dysfunctio n of eustachian tube 64844935 Completed 200306/13/2013 Not Available [facility] 3 02:03:31 Myopia 55239923 Active 2003 Not Available [facility] 3 03:12:17 Injury of elbow 019962263 Completed 200506/13/2013 Not Available [facility] 3 02:04:03 Streptococ julieth sore throat 24522881 Completed 200406/13/2013 Not Available [facility] 3 02:02:02 Allergic asthma without status asthmaticu s 08915476 Active 2003 Not Available [facility] 3 03:12:17 Problem Notes None recorded. Medical Equipment None Reported. Vitals None Recorded Social History None recorded. Functional Status None recorded. Mental Status None recorded. Family History Nothing Reported. Medical History No medical history recorded. Past Encounters Encounter ID Performer Location Encounter Start Date Encounter Closed Date Diagnosis/Indication Diagnosis SNOMED-CT Code Diagnosis ICD10 Code Diagnosis Note [id number] Sean CLOUD, [facility], OFFICE [address] [place] [address] 12/11/2003 15:30:35 12/12/2003 08:46:16 [id number] Sean CLOUD [facility], [address] [place] [address] 01/03/2004 11:36:46 01/03/2004 17:44:59 [id number] Sean CLOUD [address] [place] [address] 03/20/2004 15:22:07 03/23/2004 08:22:41 [id number] Matt Lang, [facility], [facility] [address] [place] [address] 04/30/2004 15:50:54 04/30/2004 16:44:58 [id number] [facility], [facility] [address] [place] [address] 04/30/2004 17:21:46 04/30/2004 17:45:36 [id number] MD AI Escobedo [facility], [address] [place] [address] 05/25/2004 15:44:55 08/14/2008 02:02:29 [id number] Sean CLOUD [address] [place] [address] 08/10/2004 14:05:58 08/11/2004 15:49:35 [id number] Gabriella CLOUD [facility], [address] [place] [address] 09/14/2004 13:14:17 09/14/2004 17:29:49 [id number] Gabriella CLOUD [address] [place] [address] 10/02/2004 15:08:02 10/02/2004 17:43:48 [id number] [facility] RADIOLOGY Technologi st Radiology , [facility] [address] [place] [address] 10/12/2004 12:39:48 10/12/2004 14:00:52 [id number] [facility] RADIOLOGY Technologi st Radiology , [facility] [address] [facility] [address] 10/12/2004 00:00:00 08/14/2008 02:02:29 [id number] Sean Lee FP, [facility], OFFICE [address] [place] [address] 10/12/2004 11:48:55 10/13/2004 09:50:50 [id number] Desmond Floyd MD , [facility], OFFICE [address] [place] [address] 01/04/2005 13:50:49 01/05/2005 09:44:45 [id number] [facility] RADIOLOGY Technologi st Radiology , [facility] [address] [facility] [address] 10/01/2005 15:57:21 10/04/2005 08:22:52 [id number] [facility], [facility] [address] [facility] [place] [address] 07/17/2008 08:50:17 08/14/2008 02:02:29 Health Concerns Section Related Observation LastModified by Organization Detai ls LastModified Time None Recorded Concern Status LastModified by Organization Details LastModified Time None Recorded Advance Directives Directive None Recorded Payers Encounter Date Sequence Insurance Name Policy Number Policy Boyd Covered Member ID Boyd Member ID Guarantor Name 10/12/2004 1 [place] Crystal Del Castillo [id number] Sarbjit Del Castillo 10/12/2004 1 [place] Crystal Del Castillo [id number] Sarbjit Del Castillo 01/04/2005 1 [facility] NET PLAN (MEDICAID HMO) [id number] Sarbjit Del Castillo [id number] Sarbjit Del Castillo 10/01/2005 1 [facility] PLAN (MEDICAID HMO) [id number] Sarbjit De lCastillo [id number] Sarbjit Del Castillo 07/17/2008 1 [facility] - HEALTH NET PLAN (MEDICAID HMO) [id number] Sarbjit Del Castillo [id number] Sarbjit Del Castillo
--- OUTSIDE RECORDS SUMMARY | 2024-11-27 14:09 | XMS_ITS | Encounter Summary ---
Author Organization [facility] Address [address] [place] [address] Phone Care Team Providers Care Helicopter Crew Chief Name Role Phone Marcelo Salazar Primary Care Provider [phone] Encounter Details Date Type Department Care Team (Late st Contact Info) Description 12/12/2009 Documentation EM Family Medicine [address] [place] [address] Family Medicine, Physician [address] [place], [place] [address] Social History Tobacco Use Types Packs/Day Years [...] on filedocumented in this encounter Care Teams Helicopter Crew Chief Relationship Specialty Start Date End Date Marcelo Salazar [address] [place] [address] PCP - General 03/04/17 documented as of this encounter
== END 2024-11-27 12:59 | disposition home or self-care (01) ==
LOC: HO.RESP 12:58
PROVIDERS: PCP Nurse Practitioner Family; Visit Provider Physician Assistant Medical
DX: J45.901 Unspecified asthma with (acute) exacerbation (principal)
CPT/HCPCS: 94010; 94640; 94727; 94729

== ENCOUNTER → 2024-11-27 13:06 | Outpatient (BNV) | payer OTHER, SELFPAY | PROVIDERS: PCP Nurse Practitioner Family; Visit Provider Hospitalist | DX: J45.909 Unspecified asthma, uncomplicated (principal) | CPT/HCPCS: 94060; 94727; 94729 ==

== ENCOUNTER 2025-01-11 09:29 | Outpatient (AMB) | payer OTHER, SELFPAY ==
--- NOTE | 2025-01-11 09:31 | A.OFFPC_ITS ---
Vital Signs 01/11/25 09:37 Height 5 ft 10 in Weight 207 lb 8 oz BMI 29.8 BP 130/60 Blood Pressure Location Rt brachial Position Sitting Respiration 16 Pulse 56 Pulse Source Pulse Oximeter Temp 98.3 F Temp Source Oral Pulse Oximetry (%) 98 Oxygen Delivery Method Room Air Intake Visit Reasons: pt wants to discuss a prescription for prednisone Intake Note: patient here to discuss prednisone script with provider for asthma. Security Systems Administrator Required: No Allergies shellfish derived Allergy (Verified 01/11/25 09:43) Anaphylaxis Medication List - Last Reconciled 01/11/25 by Jesus Ledesma CNP albuterol sulfate 90 mcg/actuation 2 puffs inhalation QID PRN albuterol sulfate 2.5 mg (3 mL) inhalation Q4-6H PRN budesonide-formoterol 160-4.5 mcg/actuation (Symbicort) 2 puffs inhalation Q12H cetirizine (Zyrtec) 10 mg PO DAILY 30 days fluticasone propionate 50 mcg/actuation 1 spray intranasal Q12H 90 days ipratropium bromide 2 sprays intranasal BID-TID PRN montelukast (Singulair) 10 mg PO BEDTIME Tobacco use date assessed: 01/11/25 Dental Screening Dental Screen Date: 01/11/25 Did you have a dental visit in the last 12 months?: No Did you have a dental problem in the last 6 months where you did not have access to dental care?: No Was dental information given to patient?: Yes HPI HPI Comments History of Present Illness Details 29-year-old male, accompanied by his sig nificant other, presents for asthma follow-up. He reports asthma flare up with up to 2 asthma attacks for 3 consecutive nights last week. 2 weeks, including wheezing. He notes associated allergy symptoms. His symptoms worsened for the past 2 weeks but has significantly improved. He ran out of his symbicort x 1 month and during the period he experienced severe symptoms. Symbicort was recently refilled. He has been taking using his inhalers and taking cetirizine and montelukast as prescribed, however, he does not use his albuterol inhaler when using Symbicort. He denies acute symptoms at this time. 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 1. Little interest or pleasure in doing things: several days 2. Feeling down, depressed, or hopeless: several days 3. Trouble falling or staying asleep, or sleeping too much: several days 4. Feeling tired or having little energy: several days 5. Poor appetite or overeating: not at all 6. Feeling bad about yourself - or that you are a failure or have let yourself or your family down: several days 7. Trouble concentrating on things, such as reading the newspaper or watching television: several days 8. Moving or speaking so slowly that other people could have noticed. Or the opposite - being so fidgety or restless that you have been moving around a lot more than usual: not at all 9. Thoughts that you would be better off or of hurting yourself in some way: not at all Total score: 6 Depression Screening Interpretation: Positive Depression Screening Done: Yes Source: Developed by Drs. Marcelo Chen, Maria D Ornelas, Jad Ojeda and colleagues, with an educational keo from [employer]. Thrive Questionnaire Date Thrive assessed: 07/09/24 I am a: Patient What is your living situation today?: I have a steady place to live Within the past 12 months, did the food you bought not last and you didn't have the money to get more?: Sometimes True Within the past 12 months, did you worry whether your food would run out before you got money to buy more?: I choose not to answer this question Do you have trouble paying for medicines?: No Do you have trouble getting transportation to medical appointments?: No Do you have trouble paying your heating and electricity bill?: No Do you have trouble taking care of your child, family member or friend?: No Do you have trouble with day-to-day activities such as bathing, preparing meals, shopping, managing finances, etc.?: No Are you currently unemployed and looking for a job?: Yes Are you interested in more education?: Yes Please select the resources that you would like help with: Job search/training and Education Currently or been in a relationship where the following occur: No concerns reported THRIVE Score: 1 AUDIT C Alcohol Use Questionnaire (AUDIT-C) 1. How often do you have a drink containing alcohol?: Never Total Score: 0 SUKH-7 AMB Questionnaire SUKH-7 Date SUKH - 7 assessed: 07/16/24 Feeling nervous, anxious, or on edge: 1 = Several days Not being able to stop or control worryin = Several days Worrying too much about different things: 1 = Several days Trouble relaxin = Several days Being so restless that it is hard to sit still: 1 = Several days Becoming easily annoyed or irritable: 1 = Several days Feeling afraid as if something awful might happen: 1 = Several days Total SUKH-7 score (0-4 normal; 5-9 mild; 10-14 moderate; 15-21 severe): 7 Source: Developed by Drs. Marcelo Chen, Maria D Ornelas, Jad Ojeda and colleagues, with an educational keo from [employer]. ACT Questionnaire In the past 4 weeks, how much of the time did your asthma keep you from getting as much done at work, school or at home?: Some of the time During the past 4 weeks, how often have you had shortness of breath?: 1-2 times a week During the past 4 weeks, how often did your asthma symptoms wake you up at night or earlier than usual in the morning?: 2-3 nights a week During the past 4 weeks, how often have you had to use your rescue inhaler or nebulizer medication?: More than 3 times per day How would you rate your asthma control during the past 4 weeks?: Poorly controlled ACT Interpretation: Positive Score: 12 Review of Systems Const Details: Const Denies chills, Denies fatigue, Denies fever(s), Denies headache(s) and Denies weakness ENT Denies dizziness and Denies headache(s) Card Denies chest pain, Denies lightheadedness, Denies dyspnea and Denies other (Palpitations) Resp Denies cough, Denies dyspnea, Denies wheezing and Denies other ( shortness of breath) GI Denies abdominal pain, Denies melena, Denies hematochezia, Denies change in bowel habits, Denies dyspepsia and Denies nausea Denies hematuria and Denies dysuria Musc Denies abnormal gait, Denies myalgias, Denies arthralgias, Denies numbness and Denies tingling Skin/Breast Denies rash, Denies unusual bruising and Denies wounds Neuro Denies abnormal gait, Denies dizziness, Denies headache(s), Denies memory loss, Denies numbness, Denies Sensory deficit (Neuro), Denies tingling and Denies weakness Psych Denies anxiety, Denies depression, Denies memory loss Endo Denies cold intolerance, Denies fatigue, Denies heat intolerance, Denies polydipsia and Denies polyuria Aller/Immun Denies wheezing Physical exam (Primary Care) Vital Signs: Last Vital Signs Temp 98.3 F 01/11/25 09:37 Pulse 56 01/11/25 09:37 Resp 16 01/11/25 09:37 BP 130/60 01/11/25 09:37 Pulse Ox 98 01/11/25 09:37 Oxygen Delivery Method Room Air 01/11/25 09:37 BMI result Body Mass Index 29.8 Tobacco/Smoking Status: Tobacco use Status Tobacco use date assessed 01/11/25 01/11/25 09:41 Patient Tobacco Use Status Never used Tobacco 01/11/25 09:34 e-Cigarette/Vaping Use Never Used 01/11/25 09:34 PHQ-9: PHQ-9 Score PHQ-9: Total score 6 01/11/25 09:34 Depression Screening Interpretation: Positive Thrive Assessment: Date of Thrive Assessment Date Thrive assessed 07/09/24 01/11/25 09:34 Currently or been in a relationship where the following occur: No concerns reported Const Other: General: no acute distress and well developed Nutritional Appearance: well nourished Orientation/consciousness: patient oriented x3 HENMI Head: Yes normocephalic and Yes atraumatic Eyes General: appearance normal, both eyes and all related structures Pupils: Equal, round and reactive pupils present EOM: EOMs intact bilaterally Resp Effort & Inspection: normal respiratory effort Auscultation: clear to auscultation bilaterally Cardio Rate: regular rate Rhythm: regular rhythm Heart sounds: S1 normal heart sound present, S2 normal heart sound present, no gallops, no murmurs and no rubs GI Palpation (GI): No Abdominal aortic bruit present, Soft to palpation, nontender, No hepatosplenomegaly present and No Rebound tenderness present Auscultation: normal bowel sounds General: Yes no CVA tenderness Back/Spine/Pelvis Back: no CVA tenderness Cervical Spine: cervical ROM normal and No Cervical spine tenderness Thoracic/Lumbar Spine: thoraco-lumbar ROM normal, No pain with thoraco-lumbar ROM, No thoracic spinal tenderness and No lumbar spinal tenderness Extrem General: Yes normal to inspection, No edema and No calf tenderness Skin General: warm and dry. Normal skin color. Normal skin turgor Neuro General: patient oriented x3, gait normal and no focal neuro deficit Cranial nerves: Yes Equal, round and reactive pupils present Cognition (Neuro): normal cognition Gait exam (Neuro): Normal gait present Sensory Exam: No Sensory deficit (Neuro) Psych Appearance: grossly normal Affect: normal affect Attitude: cooperative Thought process: Normal thought process present Coding Level of Care Code Est Pt Level 3 (63544) Diagnoses Moderate persistent asthma with status asthmaticus J45.42 Asthma complication type: with status asthmaticus Additional Codes Asthma Control Questionnaire - ACT Interpretation: Positive ([id number]) Assessment & Plan Assessment & Plan (1) Moderate persistent asthma: Code(s): J45.40 - Moderate persistent asthma, uncomplicated Category: Medical Qualifiers: Asthma complication type: with status asthmaticus Qualified Code(s): J45.42 - Moderate persistent asthma with status asthmaticus Plan: ACT score is 12, poorly control asthma. Lung sounds clear and equal bilaterally. Heart with regular rate and rhythm. Continue current treatment regimen. Advised to use albuterol inhaler prior to Symbicort to expand his lungs; rinse mouth thoroughly after Symbicort use. Follow-up with worsening or new symptoms. May refer to pulmonology. Verbalized understanding and agreed with the plan.
[2025-01-11 09:37] VITALS: BP 130/60; PULSE 56; RESP 16; TEMP 36.8; O2SAT 98; BMI 29.8
--- OUTSIDE RECORDS SUMMARY | 2025-01-11 09:46 | XMS_ITS | Data Portability ---
Author Organization [facility], [facility] Address [address] [place] [address] Assessment No assessment recorded. Plan of Treatment [...] Address Organization Details Recorded Time Abdominal pain 57341999 Completed 200406/13/2013 Not Available [facility] 3 02:01:21 Common cold 14059257 Completed 200306/13/2013 Not Available [facility] 3 02:00:28 Viral disease 23210267 Completed 200406/13/2013 Not Available [facility] 3 02:03:22 Influenza with respirator y manifestat ion other than pneumonia Completed 200406/13/2013 Not Available [facility] 3 02:03:48 Diarrhea 94589070 Completed 200406/13/2013 Not Available [facility] 3 02:02:15 Dysfunctio n of eustachian tube 88796058 Completed 200306/13/2013 Not Available [facility] 3 02:03:31 Myopia 86715238 Active 2003 Not Available [facility] 3 03:12:17 Injury of elbow 866051059 Completed 200506/13/2013 Not Available [facility] 3 02:04:03 Streptococ julieth sore throat 24186120 Completed 200406/13/2013 Not Available [facility] 3 02:02:02 Allergic asthma without status asthmaticu s 24719603 Active 2003 Not Available [facility] 3 03:12:17 Problem Notes None recorded. Medical Equipment None Reported. Vitals None Recorded Social History None recorded. Functional Status None recorded. Mental Status None recorded. Family History Nothing Reported. Medical History No medical history recorded. Past Encounters Encounter ID Performer Location Encounter Start Date Encounter Closed Date Diagnosis/Indication Diagnosis SNOMED-CT Code Diagnosis ICD10 Code Diagnosis Note [id number] Sean CLOUD, [facility], OFFICE [address] [place] [address] 12/11/2003 15:30:35 12/12/2003 08:46:16 [id number] Sean CLOUD [facility], [address] [place] [address] 01/03/2004 11:36:46 01/03/2004 17:44:59 [id number] Sean CLOUD [address] [place] [address] 03/20/2004 15:22:07 03/23/2004 08:22:41 [id number] Matt Lang, [facility], [facility] [address] [place] [address] 04/30/2004 15:50:54 04/30/2004 16:44:58 [id number] [facility], [facility] [address] [place] [address] 04/30/2004 17:21:46 04/30/2004 17:45:36 [id number] MD AI Escobedo [facility], [address] [place] [address] 05/25/2004 15:44:55 08/14/2008 02:02:29 [id number] Sean CLOUD [address] [place] [address] 08/10/2004 14:05:58 08/11/2004 15:49:35 [id number] Gabriella CLOUD [facility], [address] [place] [address] 09/14/2004 13:14:17 09/14/2004 17:29:49 [id number] Gabriella CLOUD [address] [place] [address] 10/02/2004 15:08:02 10/02/2004 17:43:48 [id number] [facility] , [facility] [address] [place] [address] 10/12/2004 12:39:48 10/12/2004 14:00:52 [id number] [facility] , [facility] [address] [place] [address] 10/12/2004 00:00:00 08/14/2008 02:02:29 [id number] Sean Lee FP, [facility], OFFICE [address] [place] [address] 10/12/2004 11:48:55 10/13/2004 09:50:50 [id number] Desmond Floyd MD , [facility], OFFICE [address] [place] [address] 01/04/2005 13:50:49 01/05/2005 09:44:45 [id number] [facility] , [facility] [address] [facility] [place] [address] 10/01/2005 15:57:21 10/04/2005 08:22:52 [id number] [facility], [facility] [address] [facility] [address] 07/17/2008 08:50:17 08/14/2008 02:02:29 Health Concerns Section Related Observation LastModified by Organization Detai ls LastModified Time None Recorded Concern Status LastModified by Organization Details LastModified Time None Recorded Advance Directives Directive None Recorded Payers Insurance Date Sequence Insurance Name Policy Number Policy Boyd Covered Member ID Boyd Member ID Guarantor Name 11/03/2011 1 [facility] - HEALTH NET PLAN (MEDICAID HMO) [id number] Sarbjit De lCastillo [id number] Sarbjit Del Castillo 11/03/2011 2 [place] [facility] Sarbjit Del Castillo [id number] Sarbjit Del Castillo 01/04/2005 1 [place] [facility] PLAN Crystal Del Castillo [id number] Sarbjit Del Castillo
== END 2025-01-11 10:16 | disposition home or self-care (01) ==
LOC: HO.HMCFM 09:29
PROVIDERS: PCP Nurse Practitioner Family; Visit Provider Nurse Practitioner Family
DX: J45.42 Moderate persistent asthma with status asthmaticus (principal)

== ENCOUNTER → 2025-01-11 09:29 | Outpatient (BNVA) | payer OTHER, SELFPAY | PROVIDERS: PCP Nurse Practitioner Family; Visit Provider Nurse Practitioner Family | DX: J45.42 Moderate persistent asthma with status asthmaticus (principal); Z79.899 Other long term (current) drug therapy | CPT/HCPCS: 96127; 96160; 99212 ==